=== PATIENT | female | born 1990 | race Caucasian/White ===

== ENCOUNTER 2017-08-28 07:11 | Inpatient (IN) | payer MEDICAID ==
[2017-08-28] MEDS ORDERED: Misoprostol 25 MCG (1/4 of 100 MCG) Tab VAG ONE (07:15)
[2017-08-28] MEDS ORDERED: Misoprostol 25 MCG (1/4 of 100 MCG) Tab ONE (07:29)
[2017-08-28] MEDS: Lactated Ringers 1,000 ML IV SCH ×4 (08:10→22:00)
[2017-08-28] MEDS: Penicillin G Potassium 2.5 MILLUNITS in Sodium Chloride 0.9% 100 ML IV SCH ×3 (08:40→16:05)
[2017-08-28] MEDS ORDERED: fentaNYL 100 MCG/2 ML SDV EPIDUR ONE (09:09)
[2017-08-28] MEDS ORDERED: Ropivacaine 200 ML EPIDUR ONE (09:09)
[2017-08-28] MEDS ORDERED: Ondansetron 4 MG/2 ML SDV IVPUSH PRN ×3 (11:49→20:36)
[2017-08-28] MEDS ORDERED: Magnesium Sulfate/Water 40 GM/1,000 ML BAG IV SCH (12:00)
[2017-08-28] MEDS ORDERED: Magnesium Sulfate/Water 4 GM in Premix Bag 1 BAG IV ONE (12:00)
[2017-08-28] MEDS ORDERED: ePHEDrine 50 MG/ML SDV ONE (13:00)
[2017-08-28] MEDS ORDERED: Naloxone 0.4 MG/ML SDV ONE (13:01)
[2017-08-28] MEDS ORDERED: Naloxone 0.4 MG/ML SDV IVPUSH PRN ×3 (13:20→20:36)
[2017-08-28] MEDS ORDERED: diphenhydrAMINE 50 MG/ML SDV IVPUSH PRN ×2 (13:20→20:12)
[2017-08-28] MEDS ORDERED: ePHEDrine 50 MG/ML SDV IVPUSH PRN ×2 (13:20→20:12)
[2017-08-28] MEDS ORDERED: Promethazine 25 MG/ML SDV IV PRN (13:20)
[2017-08-28] MEDS ORDERED: Naloxone 0.4 MG in Sodium Chloride 0.9% 100 ML IV PRN (13:20)
[2017-08-28] MEDS ORDERED: Oxytocin/Normal Saline 10 UNIT/1,000 ML BAG IV SCH (15:30)
--- NOTE | 2017-08-28 17:21 | PCM.LDHP ---
L&D History of Present Illness - General Date of Service: 08/28/17 Admit Problem/Dx: Patient Status Order with Admit Dx/Problem 08/28/17 07:24 Admission Status [Patient Status] [ADT] Routine 08/28/17 10:35 Admission Status [Patient Status] [ADT] Routine 08/28/17 12:00 Patient Status [ADT] Routine 08/30/17 07:00 Admission Status [Patient Status] [ADT] Routine Admission Diagnosis/Problem Admission Diagnosis/Problem Source of Information: Patient History Limitations: Reports: No Limitations - History of Present Illness Introduction:: 27-year-old female at 39 weeks plus admitted for induction of labor. EDC is 09/02/2017. She has a history of obesity,affecting , a two-vessel cord affecting the , polyhydramnios,which has been stable with an MOUNA of 6.1. She also has a history of tobacco abuse. She will start 2 previous pregnancies in early trimesters. This has otherwise been unremarkable with exception of what sort admission above. She is being admitted for elective induction because of the above reasons. - Related Data Allergies/Adverse Reactions: Allergies Allergy/AdvReac Type Severity Reaction Status Date / Time loratadine [From Claritin-D] Allergy Anaphylactic Verified 08/28/17 08:24 Shock Home Medications: Home Meds DEA108/Iron Fumarate/FA/DSS [ 19 Tablet] 1 each PO 08/28/17 [History] Past Medical History Gastrointestinal History: Reports: GERD PREFABRICATED HOUSES TRIMMER History: Reports: , Spontaneous Other OB/BYN History: Neurological History: Reports: Migraines Psychiatric History: Reports: Anxiety, Depression - Past Surgical History GI Surgical History: Reports: Cholecystectomy Social & Family History - Family History Family Medical History: Noncontributory - Tobacco Use Smoking Status *Q: Current Every Day Smoker Years of Tobacco use: 7 Packs/Tins Daily: 0.2 Used Tobacco, but Quit: No Second Hand Smoke Exposure: No - Caffeine Use Caffeine Use: Reports: Soda - Alcohol Use Days Per Week of Alcohol Use: 0 - Recreational Drug Use Recreational Drug Use: No Drug Use in Last 12 Months: Yes Recreational Drug Type: Reports: Marijuana/Hashish Recreational Drug Use Frequency: Daily Recreational Drug Last Use: 2 days ago H&P Review of Systems - Review of Systems: Review Of Systems: ROS reveals no pertinent complaints other than HPI. L&D Exam - Exam Exam: See Below - Vital Signs Vital Signs: Last Vital Signs Temp 97.5 F 08/28/17 12:00 Pulse 107 H 08/28/17 15:18 Resp 20 08/28/17 15:18 BP 115/51 L 08/28/17 15:18 Pulse Ox 98 08/28/17 15:18 Weight: 130.907 kg - OB Specific Contraction Duration (sec): 50-110 Contraction Frequency (min): 2-6 Contraction Intensity: Moderate to Strong - Stevens Score Stevens Score Cervix Position: Posterior Stevens Score Consistency: Medium Stevens Score Dilation: 1-2 cm Stevens Score 's Station: -2 - Exam General: Alert, Oriented HEENT: PERRLA, Conjunctiva Clear, EACs Clear, EOMI, Hearing Intact, Mucosa Moist & [place], Nares Patent, Normal Nasal Septum, Posterior Pharynx Clear, TMs Clear Neck: Supple, Trachea Midline Lungs: Clear to Auscultation, Normal Respiratory Effort Cardiovascular: Regular Rate, Regular Rhythm GI/Abdominal Exam: Normal Bowel Sounds, Soft, Non-Tender, No Organomegaly, No Distention, No Abnormal Bruit, No Mass, Pelvis Stable Rectal Exam: Normal Exam, Normal Rectal Tone Genitourinary: Normal external exam, Normal bimanual exam, Normal speculum exam Back Exam: Normal Inspection, Full Range of Motion Extremities: Normal Inspection, Normal Range of Motion, Non-Tender, No Pedal Edema, Normal Capillary Refill Skin: Warm, Dry, Intact Neurological: Cranial Nerves Intact, Reflexes Equal Bilateral Psychiatric: Alert, Normal Affect, Normal Mood - Patient Data Lab Results Last 24 hrs: Laboratory Results - last 24 hr 08/28/17 08/28/17 Range/Units 10:56 10:56 WBC 11.7 (4.5-12.0) X10-3/uL RBC 4.38 (3.23-5.20) x10(6)uL Hgb 11.9 (11.5-15.5) g/dL Hct 35.1 (30.0-51.3) % MCV 80.2 (80-96) fL MCH 27.1 L (27.7-33.6) pg MCHC 33.8 (32.2-35.4) g/dL RDW 16.0 H (11.5-15.5) % Plt Count 336 (125-369) X10(3)uL MPV 8.0 (7.4-10.4) fL Neut % (Auto) 76.8 (46-82) % Lymph % (Auto) 16.4 (13-37) % [place] % (Auto) 5.8 (4-12) % Eos % (Auto) 1 (1.0-5.0) % Baso % (Auto) 0 (0-2) % Neut # (Auto) 9.0 H (1.6-8.3) # Lymph # (Auto) 1.9 (0.6-5.0) # [place] # (Auto) 0.7 (0.0-1.3) # Eos # (Auto) 0.1 (0.0-0.8) # Baso # (Auto) 0.0 (0.0-0.2) # Sodium 137 (135-145) mmol/L Potassium 4.0 (3.5-5.3) mmol/L Chloride 104 (100-110) mmol/L Carbon Dioxide 20 L (21-32) mmol/L BUN 11 (7-18) mg/dL Creatinine 0.8 (0.55-1.02) mg/dL Est Cr Clr Drug Dosing 100.63 mL/min Estimated GFR (MDRD) > 60 (>60) BUN/Creatinine Ratio 13.8 (9-20) Glucose 81 (80-116) mg/dL Calcium 8.8 (8.6-10.2) mg/dL Total Bilirubin 0.4 (0.1-1.3) mg/dL AST 18 (5-25) IU/L ALT 18 (12-36) U/L Alkaline Phosphatase 104 (56-112) IU/L Total Protein 6.8 (6.0-8.0) g/dL Albumin 2.5 L (3.5-5.2) g/dL Globulin 4.3 g/dL Albumin/Globulin Ratio 0.6 Result Diagrams: 08/28/17 10:56 08/28/17 10:56 - Problem List (1) Term SNOMED Code(s): 42455271 ICD Code: Z34.80 - ENCOUNTER FOR SUPRVSN OF NORMAL , UNSP TRIMESTER Status: Acute Current Visit: Yes (2) Elective induction of labor planned SNOMED Code(s): 591748667 ICD Code: [id number] - Status: Acute Current Visit: Yes (3) Polyhydramnios SNOMED Code(s): 17255760 ICD Code: O40.9XX0 - POLYHYDRAMNIOS, UNSP TRIMESTER, NOT APPLICABLE OR UNSP Status: Acute Current Visit: Yes Qualifiers: Trimester: third trimester (4) Group B streptococcal carriage complicating SNOMED Code(s): 211942787800460 ICD Code: O99.820 - STREPTOCOCCUS B CARRIER STATE COMPLICATING Status: Acute Current Visit: Yes (5) Two vessel umbilical cord in mcintosh , antepartum SNOMED Code(s): 131492224 ICD Code: O09.899 - SUPERVISION OF OTHER HIGH RISK PREGNANCIES, UNSP TRIMESTER Status: Acute Current Visit: Yes (6) Severe pre-eclampsia SNOMED Code(s): 90323082 ICD Code: O14.10 - SEVERE PRE-ECLAMPSIA, UNSPECIFIED TRIMESTER Status: Acute Current Visit: Yes Qualifiers: Trimester: third trimester Qualified Code(s): O14.13 - Severe pre-eclampsia , third trimester (7) Obesity SNOMED Code(s): 879186493 ICD Code: E66.9 - OBESITY, UNSPECIFIED Status: Acute Current Visit: Yes Problem List Initiated/Reviewed/Updated: Yes Orders Last 24hrs: Active Orders 24 hr Category Date Time Status Admission Status [Patient Status] [ADT] Routine ADT 08/28/17 07:24 Active Admission Status [Patient Status] [ADT] Routine ADT 08/28/17 10:35 Active Admission Status [Patient Status] [ADT] Routine ADT 08/30/17 07:00 Active Patient Status [ADT] Routine ADT 08/28/17 12:00 Active Bedrest [RC] ASDIRECTED Care 08/28/17 10:55 Active Communication Order [RC] ASDIRECTED Care 08/28/17 12:00 Active Communication Order [RC] ASDIRECTED Care 08/28/17 15:18 Active Communication Order [RC] ASDIRECTED Care 08/28/17 15:18 Active Communication Order [RC] ASDIRECTED Care 08/28/17 15:18 Active Communication Order [RC] ASDIRECTED Care 08/28/17 15:18 Active Equipment to Bedside [RC] PRN Care 08/28/17 12:00 Active Insert Urinary Catheter [OM.PC] ONETIME Care 08/28/17 16:30 Ordered Notify Provider Vital Signs [RC] ASDIRECTED Care 08/28/17 12:03 Active Notify Provider [RC] PRN Care 08/28/17 15:18 Active Notify Provider [RC] STAT Care 08/28/17 15:18 Active Oxygen Therapy [RC] PRN Care 08/28/17 12:00 Active Urinary Catheter Assessment [RC] QSHIFT Care 08/28/17 16:31 Active Vital Signs [RC] ASDIRECTED Care 08/28/17 12:00 Active BASIC METABOLIC PANEL,BMP [CHEM] Routine Lab 08/28/17 17:11 Ordered MAGNESIUM [CHEM] Stat Lab 08/28/17 17:11 Ordered Lactated Ringers [Ringers, Lactated] 1,000 ml Med 08/28/17 07:45 Active IV ASDIRECTED Magnesium Sulfate/Water [Magnesium Sulfate 40 GM in Med 08/28/17 12:00 Active Water 1000 ML] 40 gm in 1,000 ml IV ASDIRECTED Naloxone [Narcan] Med 08/28/17 13:20 Active 0.1 mg IVPUSH ASDIRECTED PRN Naloxone [Narcan] 0.4 mg Med 08/28/17 13:20 Active Sodium Chloride 0.9% [Normal Saline] 100 ml IV ASDIRECTED Ondansetron [Zofran] Med 08/28/17 11:49 Active 4 mg IVPUSH Q6H PRN Ondansetron [Zofran] Med 08/28/17 13:23 Active 4 mg IVPUSH Q6H PRN Oxytocin/Normal Saline [Pitocin in NS 10 UNITS/1,000 ML Med 08/28/17 15:30 Active ] 10 unit in 1,000 ml IV TITRATE Penicillin G Potassium [Pfizerpen] 2.5 millunits Med 08/28/17 08:15 Active Sodium Chloride 0.9% [Normal Saline] 100 ml IV Q4H Promethazine [Phenergan] Med 08/28/17 13:20 Active 6.25 - 12.5 mg IV Q4H PRN diphenhydrAMINE [Benadryl] Med 08/28/17 13:20 Active 25 mg IVPUSH ASDIRECTED PRN ePHEDrine [ePHEDrine Sulfate] Med 08/28/17 13:20 Active 5 mg IVPUSH ASDIRECTED PRN Blood Pressure [OM.PC] Per Unit Routine Oth 08/28/17 12:00 Ordered Deep Tendon Reflexes [WOMSER] Per Unit Routine Oth 08/28/17 12:00 Ordered Resuscitation Status Routine Resus Stat 08/28/17 12:00 Ordered Medication Orders Diphenhydramine HCl (Benadryl) 25 mg IVPUSH ASDIRECTED PRN PRN Reason: PRURITUS Ephedrine Sulfate (Ephedrine Sulfate) 5 mg IVPUSH ASDIRECTED PRN PRN Reason: HYPOTENSION Lactated Ringer's (Ringers, Lactated) 1,000 mls @ 125 mls/hr IV ASDIRECTED STEPHANIE Last Admin: 08/28/17 15:20 Dose: 500 mls/hr Infusion: 08/28/17 12:39 Dose: 999 mls/hr Infusion: 08/28/17 11:39 Dose: 999 mls/hr Admin: 08/28/17 11:38 Dose: 125 mls/hr Infusion: 08/28/17 11:38 Dose: 125 mls/hr Admin: 08/28/17 08:10 Dose: 125 mls/hr Penicillin G Potassium 2.5 (millunits/ Sodium Chloride) 100 mls @ 100 mls/hr IV Q4H STEPHANIE Last Admin: 08/28/17 16:05 Dose: 100 mls/hr Admin: 08/28/17 12:21 Dose: 100 mls/hr Admin: 08/28/17 08:40 Dose: 100 mls/hr Magnesium Sulfate (Magnesium Sulfate 40 Gm In Water 1000 Ml) 40 gm in 1,000 mls @ 50 mls/hr IV ASDIRECTED STEPHANIE PRN Reason: 2 GM/HR Last Admin: 08/28/17 12:35 Dose: 2 gm/hr, 50 mls/hr Naloxone HCl 0.4 mg/ Sodium (Chloride) 101 mls @ 25 mls/hr IV ASDIRECTED PRN PRN Reason: PER ORDER OF ANESTHESIA Oxytocin/Sodium Chloride (Pitocin In Ns 10 Units/1,000 Ml) 10 unit in 1,000 mls @ 12 mls/hr IV TITRATE STEPHANIE; 2 MUNITS/MIN PRN Reason: Protocol Last Titration: 08/28/17 16:29 Dose: 6 munits/min, 36 mls/hr Titration: 08/28/17 16:04 Dose: 4 munits/min, 24 mls/hr Admin: 08/28/17 15:31 Dose: 2 munits/min, 12 mls/hr Naloxone HCl (Narcan) 0.1 mg IVPUSH ASDIRECTED PRN PRN Reason: RESPIRATORY STATUS Ondansetron HCl (Zofran) 4 mg IVPUSH Q6H PRN PRN Reason: Nausea/Vomiting Last Admin: 08/28/17 11:59 Dose: 4 mg Ondansetron HCl (Zofran) 4 mg IVPUSH Q6H PRN PRN Reason: NAUSEA/VOMITING Promethazine HCl (Phenergan) 6.25 - 12.5 mg IV Q4H PRN PRN Reason: NAUSEA AND VOMITING Assessment/Plan Comment:: Patient was induced by Cytotec orally this morning. Pitocin was initiated later today. She had spontaneous rupture of membranes. I started group B prophylaxis with penicillin-based protocol. In addition I placed an IUPC after it was difficult to monitor contractions. She asked and received an epidural analgesic. At this time she is resting about 8-9 cm. We started magnesium also because of very high blood pressures were discovered today CBC and CMP has been negative. We'll continue augmentation of labor group B chemoprophylaxis, hopeful vaginal imminently
[2017-08-28] MEDS ORDERED: Labetalol 20 MG/4 ML Syringe IVPUSH ONE (18:18)
[2017-08-28] MEDS ORDERED: Labetalol 20 MG/4 ML Syringe ONE (18:20)
[2017-08-28] MEDS ORDERED: Citric Acid/Sodium Citrate Solution 30 ML Cup PO STA (18:51)
[2017-08-28] MEDS ORDERED: Scopolamine 1.5 MG Transdermal Patch TRDERM STA (18:51)
[2017-08-28] MEDS ORDERED: Ondansetron 4 MG/2 ML SDV IVPUSH ONE (20:30)
[2017-08-28] MEDS ORDERED: Oxytocin 10 Units/1 ML SDV IV ONE (20:30)
[2017-08-28] MEDS ORDERED: ePHEDrine/Normal Saline 50 MG/5 ML Syringe IV ONE (20:30)
[2017-08-28] MEDS ORDERED: Propofol 200 MG/20 ML SDV IV ONE (20:30)
[2017-08-28] MEDS ORDERED: Phenylephrine 1% 10 MG/ML SDV IV ONE (20:30)
[2017-08-28] MEDS ORDERED: Lactated Ringers 1,000 ML IV ONE (20:30)
[2017-08-28] MEDS ORDERED: Dexamethasone 4 MG/ML SDV IVPUSH ONE (20:30)
[2017-08-28] MEDS ORDERED: Carboprost Tromethamine 250 MCG/1 ML Amp IM ONE (20:30)
[2017-08-28] MEDS ORDERED: Lidocaine 2% 5 ML SDV IV ONE (20:30)
[2017-08-28] MEDS ORDERED: Morphine PF 10 MG/10 ML SDV IV ONE (20:30)
[2017-08-28] MEDS ORDERED: Citric Acid/Sodium Citrate Solution 30 ML Cup PO ONE (20:30)
[2017-08-28] MEDS ORDERED: Promethazine 6.25 MG in Sodium Chloride 0.9% 50 ML IV PRN (20:36)
[2017-08-28] MEDS ORDERED: Nalbuphine 10 MG/1 ML Vial IVPUSH PRN (20:36)
[2017-08-28] MEDS ORDERED: Morphine 2 MG/ML Syringe IVPUSH PRN (20:36)
--- NOTE | 2017-08-28 21:14 | DEL ---
DATE OF DELIVERY: 08/28/2017 PROCEDURE: . PREOPERATIVE DIAGNOSES: 1. Nonreassuring heart tones. 2. Polyhydramnios. 3. Failure to descend. 4. Obesity. 5. Severe hypertension. 6. Meconium staining of the amniotic fluid. POSTOPERATIVE DIAGNOSES: 1. Nonreassuring heart tones. 2. Polyhydramnios. 3. Failure to descend. 4. Obesity. 5. Severe hypertension. 6. Meconium staining of the amniotic fluid. SENIOR EDITOR: Irwin Womack MD. ANESTHESIA: Regional. PERMIT: The patient accepted the risks, benefits, and reasonable alternatives. PROCEDURE DETAILS: The patient was taken to the OR. Draped, prepped in the usual sterile fashion. The anesthesia was found to be adequate. The patient had received preoperative antibiotics in the form of penicillin. A Pfannenstiel incision was made along the lower abdominal wall, carried to the underlying fascia. This was scored in the middle and carried laterally using Edouard scissors. Using Kelvin clamps, the fascia was dissected from the muscles sharply. The rectus muscles were in the middle and the uterus, so the peritoneum was entered sharply ascertaining the internal organs were safe. After stretching, a bladder blade was inserted and a bladder reflection on the bilateral peritoneum was placed. A small incision in the lower uterine segment was made horizontally and pulled in the [id number] manner by the surgeon's fingers. Copious amounts of light meconium stained fluid was expressed. There was a nuchal cord which was reduced and the baby delivered. There was no suction at the site, but the baby's cord was cut and clamped, and the baby was handed to the waiting nurses. This is a vigorous male infant. scores 8 and 9. The attention was turned to the mother where cord blood was obtained and the placenta, 2-vessel was expressed manually. The uterus was then exteriorized and cleaned of all debris. It was closed in 2 layers using 1- 0 Vicryl. There were no complications after irrigation, and ascertaining hemostasis, the uterus was returned to the abdomen and the gutters were irrigated. The rectus fascia was then closed with 0 Vicryl and the subcutaneous fascia and skin were closed with 3-0 running stitch. Estimated blood loss 3-400 mL. Both the mother and baby stable in the PAC unit. /[id number] DAIJA/EDIS
[2017-08-29] MEDS: Penicillin G Potassium 2.5 MILLUNITS in Sodium Chloride 0.9% 100 ML IV SCH ×5 (00:22→14:44)
[2017-08-29] MEDS: Lactated Ringers 1,000 ML IV SCH ×2 (04:01→08:15)
[2017-08-29] MEDS: Ibuprofen 600 MG Tab PO SCH ×2 (12:09→18:18)
--- NOTE | 2017-08-29 17:32 | PCM.PNPP ---
- General Info Date of Service: 08/29/17 Functional Status: Reports: Tolerating Diet - Review of Systems General: Reports: No Symptoms HEENT: Reports: No Symptoms Pulmonary: Reports: No Symptoms Cardiovascular: Reports: No Symptoms Gastrointestinal: Reports: No Symptoms Genitourinary: Reports: No Symptoms Musculoskeletal: Reports: No Symptoms Skin: Reports: No Symptoms Neurological: Reports: No Symptoms Psychiatric: Reports: No Symptoms - General Info Date of Service: 08/29/17 - Patient Data Vital Signs - Most Recent: Last Vital Signs Temp 97.9 F 08/29/17 15:45 Pulse 87 08/29/17 15:45 Resp 18 08/29/17 15:45 BP 132/65 08/29/17 15:45 Pulse Ox 98 08/29/17 15:45 Weight - Most Recent: 130.907 kg I&O - Last 24 Hours: Intake & Output 08/29/17 08/29/17 08/29/17 06:59 14:59 22:59 Intake Total 1565 300 Output Total 2800 1700 Balance -1235 -1400 Lab Results - Last 24 Hours: Laboratory Results - last 24 hr 08/28/17 08/28/17 08/28/17 Range/Units 17:20 18:50 20:10 WBC (4.5-12.0) X10-3/uL RBC (3.23-5.20) x10(6)uL Hgb (11.5-15.5) g/dL Hct (30.0-51.3) % MCV (80-96) fL MCH (27.7-33.6) pg MCHC (32.2-35.4) g/dL RDW (11.5-15.5) % Plt Count (125-369) X10(3)uL MPV (7.4-10.4) fL Neut % (Auto) (46-82) % Lymph % (Auto) (13-37) % [place] % (Auto) (4-12) % Eos % (Auto) (1.0-5.0) % Baso % (Auto) (0-2) % Neut # (Auto) (1.6-8.3) # Lymph # (Auto) (0.6-5.0) # [place]inger # (Auto) (0.0-1.3) # Eos # (Auto) (0.0-0.8) # Baso # (Auto) (0.0-0.2) # Sodium 136 (135-145) mmol/L Potassium 3.9 (3.5-5.3) mmol/L Chloride 104 (100-110) mmol/L Carbon Dioxide 22 (21-32) mmol/L BUN 11 (7-18) mg/dL Creatinine 0.8 (0.55-1.02) mg/dL Est Cr Clr Drug Dosing 100.63 mL/min Estimated GFR (MDRD) > 60 (>60) BUN/Creatinine Ratio 13.8 (9-20) Glucose 103 (80-116) mg/dL Calcium 8.6 (8.6-10.2) mg/dL Magnesium 3.9 H* (1.8-2.5) mg/dL Urine Color Yellow (YELLOW) Urine Appearance Clear (CLEAR) Urine pH 5.0 (5.0-6.5) Ur Specific [place] 1.010 (1.010-1.025) Urine Protein Negative (NEGATIVE) mg/dL Urine Glucose (UA) Normal (NEGATIVE) mg/dL Urine Ketones Negative (NEGATIVE) mg/dL Urine Occult Blood Moderate H (NEGATIVE) Urine Nitrite Negative (NEGATIVE) Urine Bilirubin Negative (NEGATIVE) Urine Urobilinogen Normal (NEGATIVE) mg/dL Ur Leukocyte Esterase Negative (NEGATIVE) Urine RBC 5-10 (0) Urine WBC 0-5 (0) Ur Squamous Epith Cells Few H (NS,R,O) Urine Bacteria Few H (NS) Ur Random Creatinine mg/dL U Random Total Protein (<11.9) mg/dL Protein/Creatinin Ratio mg/mg Blood Type A POSITIVE Gel Antibody Screen Negative 08/28/17 08/29/17 08/29/17 Range/Units 20:10 06:10 06:10 WBC 15.0 H (4.5-12.0) X10-3/uL RBC 3.28 (3.23-5.20) x10(6)uL Hgb 8.9 L D (11.5-15.5) g/dL Hct 26.3 L (30.0-51.3) % MCV 80.3 (80-96) fL MCH 27.0 L (27.7-33.6) pg MCHC 33.6 (32.2-35.4) g/dL RDW 16.2 H (11.5-15.5) % Plt Count 332 (125-369) X10(3)uL MPV 8.1 (7.4-10.4) fL Neut % (Auto) 83.3 H (46-82) % Lymph % (Auto) 10.3 L (13-37) % Grainger % (Auto) 6.0 (4-12) % Eos % (Auto) 0 L (1.0-5.0) % Baso % (Auto) 0 (0-2) % Neut # (Auto) 12.6 H (1.6-8.3) # Lymph # (Auto) 1.5 (0.6-5.0) # Grainger # (Auto) 0.9 (0.0-1.3) # Eos # (Auto) 0.0 (0.0-0.8) # Baso # (Auto) 0.0 (0.0-0.2) # Sodium 136 (135-145) mmol/L Potassium 4.1 (3.5-5.3) mmol/L Chloride 104 (100-110) mmol/L Carbon Dioxide 23 (21-32) mmol/L BUN 9 (7-18) mg/dL Creatinine 0.7 (0.55-1.02) mg/dL Est Cr Clr Drug Dosing 115.01 mL/min Estimated GFR (MDRD) > 60 (>60) BUN/Creatinine Ratio 12.9 (9-20) Glucose 110 (80-116) mg/dL Calcium 7.6 L (8.6-10.2) mg/dL Magnesium (1.8-2.5) mg/dL Urine Color (YELLOW) Urine Appearance (CLEAR) Urine pH (5.0-6.5) Ur Specific [place] (1.010-1.025) Urine Protein (NEGATIVE) mg/dL Urine Glucose (UA) (NEGATIVE) mg/dL Urine Ketones (NEGATIVE) mg/dL Urine Occult Blood (NEGATIVE) Urine Nitrite (NEGATIVE) Urine Bilirubin (NEGATIVE) Urine Urobilinogen (NEGATIVE) mg/dL Ur Leukocyte Esterase (NEGATIVE) Urine RBC (0) Urine WBC (0) Ur Squamous Epith Cells (NS,R,O) Urine Bacteria (NS) Ur Random Creatinine 8 mg/dL U Random Total Protein < 6.0 (<11.9) mg/dL Protein/Creatinin Ratio 0.75 mg/mg Blood Type Gel Antibody Screen Med Orders - Current: Current Medications Diphenhydramine HCl (Benadryl) 25 mg IVPUSH Q6H PRN PRN Reason: Itching or Nausea Ephedrine Sulfate (Ephedrine Sulfate) 5 mg IVPUSH ASDIRECTED PRN PRN Reason: Other Oxytocin/Sodium Chloride (Pitocin In Ns 10 Units/1,000 Ml) 10 unit in 1,000 mls @ 12 mls/hr IV TITRATE STEPHANIE; 2 MUNITS/MIN PRN Reason: Protocol Last Titration: 08/28/17 18:07 Dose: 10 munits/min, 60 mls/hr Promethazine HCl 6.25 mg/ (Sodium Chloride) 50.25 mls @ 200 mls/hr IV Q6H PRN PRN Reason: Nausea/Vomiting Ibuprofen (Motrin) 600 mg PO Q6H STEPHANIE Last Admin: 08/29/17 12:09 Dose: 600 mg Morphine Sulfate (Morphine) 2 mg IVPUSH Q1H PRN PRN Reason: Pain Nalbuphine HCl (Nubain) 10 mg IVPUSH Q1H PRN PRN Reason: Pruritus Naloxone HCl (Narcan) 0.1 mg IVPUSH ONETIME PRN PRN Reason: Respiratory Depression Naloxone HCl (Narcan) 0.1 mg IVPUSH ONETIME PRN PRN Reason: Oversedation Ondansetron HCl (Zofran) 4 mg IVPUSH Q6H PRN PRN Reason: Nausea/Vomiting Last Admin: 08/28/17 11:59 Dose: 4 mg Ondansetron HCl (Zofran) 4 mg IVPUSH Q6H PRN PRN Reason: Nausea/Vomiting Discontinued Medications Citric Acid/Sodium Citrate (Bicitra Solution) 30 ml PO ONETIME STA Stop: 08/28/17 18:52 Last Admin: 08/28/17 18:59 Dose: 30 ml Diphenhydramine HCl (Benadryl) 25 mg IVPUSH ASDIRECTED PRN PRN Reason: PRURITUS Ephedrine Sulfate (Ephedrine Sulfate) Confirm Administered Dose 50 mg .ROUTE .STK-MED ONE Stop: 08/28/17 13:01 Last Admin: 08/28/17 18:28 Dose: Not Given Ephedrine Sulfate (Ephedrine Sulfate) 5 mg IVPUSH ASDIRECTED PRN PRN Reason: HYPOTENSION Lactated Ringer's (Ringers, Lactated) 1,000 mls @ 125 mls/hr IV ASDIRECTED [facility] Last Admin: 08/29/17 08:15 Dose: 125 mls/hr Penicillin G Potassium 2.5 (millunits/ Sodium Chloride) 100 mls @ 100 mls/hr IV Q4H [facility] Last Admin: 08/29/17 14:44 Dose: Not Given Magnesium Sulfate 4 gm/ Premix 50 mls @ 150 mls/hr IV ONETIME ONE Stop: 08/28/17 12:19 Last Admin: 08/28/17 12:07 Dose: 150 mls/hr Magnesium Sulfate (Magnesium Sulfate 40 Gm In Water 1000 Ml) 40 gm in 1,000 mls @ 50 mls/hr IV ASDIRECTED [facility] PRN Reason: 2 GM/HR Last Admin: 08/28/17 12:35 Dose: 2 gm/hr, 50 mls/hr Naloxone HCl 0.4 mg/ Sodium (Chloride) 101 mls @ 25 mls/hr IV ASDIRECTED PRN PRN Reason: PER ORDER OF ANESTHESIA Lactated Ringer's (Ringers, Lactated) 1,000 mls @ 250 mls/hr IV ASDIRECTED [facility] Last Admin: 08/29/17 04:01 Dose: 250 mls/hr Labetalol HCl (Normodyne) 20 mg IVPUSH ONETIME ONE PRN Reason: Protocol Stop: 08/28/17 18:19 Last Admin: 08/28/17 18:24 Dose: 20 mg Labetalol HCl (Normodyne) Confirm Administered Dose 20 mg .ROUTE .STK-MED ONE Stop: 08/28/17 18:21 Misoprostol (Cytotec) 25 mcg VAG ONETIME ONE Stop: 08/28/17 07:16 Last Admin: 08/28/17 07:31 Dose: 25 mcg Misoprostol (Cytotec) Confirm Administered Dose 25 mcg .ROUTE .STK-MED ONE Stop: 08/28/17 07:30 Last Admin: 08/28/17 07:31 Dose: Not Given Naloxone HCl (Narcan) Confirm Administered Dose 0.4 mg .ROUTE .STK-MED ONE Stop: 08/28/17 13:02 Naloxone HCl (Narcan) 0.1 mg IVPUSH ASDIRECTED PRN PRN Reason: RESPIRATORY STATUS Ondansetron HCl (Zofran) 4 mg IVPUSH Q6H PRN PRN Reason: NAUSEA/VOMITING Promethazine HCl (Phenergan) 6.25 - 12.5 mg IV Q4H PRN PRN Reason: NAUSEA AND VOMITING Scopolamine (Transderm-Scop) 1.5 mg TRDERM Q72H STA Stop: 08/28/17 18:52 Last Admin: 08/28/17 18:59 Dose: 1.5 mg - Infant Interaction Disposition, : at Bedside Support Person: Sister - Recovery Exam Fundal Tone: Firm Fundal Level: At Umbilicus Fundal Placement: Midline Lochia Amount: Small, Moderate Lochia Color: Rubra/Red Perineum Description: Intact, Minimal Bruising/Swelling Episiotomy/Laceration: None Bladder Status: Nonpalpable Urinary Elimination: Indwelling Catheter - Problem List & Annotations (1) Term SNOMED Code(s): 80482133 Code(s): Z34.80 - ENCOUNTER FOR SUPRVSN OF NORMAL , UNSP TRIMESTER Status: Acute Current Visit: Yes (2) Elective induction of labor planned SNOMED Code(s): 710659219 Code(s): XHD2717 - Status: Acute Current Visit: Yes (3) Polyhydramnios SNOMED Code(s): 49410114 Code(s): O40.9XX0 - POLYHYDRAMNIOS, UNSP TRIMESTER, NOT APPLICABLE OR UNSP Status: Acute Current Visit: Yes Qualifiers: Trimester: third trimester (4) Group B streptococcal carriage complicating SNOMED Code(s): 638115480388111 Code(s): O99.820 - STREPTOCOCCUS B CARRIER STATE COMPLICATING Status: Acute Current Visit: Yes (5) Two vessel umbilical cord in mcintosh , antepartum SNOMED Code(s): 243219026 Code(s): O09.899 - SUPERVISION OF OTHER HIGH RISK PREGNANCIES, UNSP TRIMESTER Status: Acute Current Visit: Yes (6) Severe pre-eclampsia SNOMED Code(s): 05676656 Code(s): O14.10 - SEVERE PRE-ECLAMPSIA, UNSPECIFIED TRIMESTER Status: Acute Current Visit: Yes Qualifiers: Trimester: third trimester Qualified Code(s): O14.13 - Severe pre-eclampsia , third trimester (7) Obesity SNOMED Code(s): 587545719 Code(s): E66.9 - OBESITY, UNSPECIFIED Status: Acute Current Visit: Yes - Problem List Review Problem List Initiated/Reviewed/Updated: Yes - My Orders Last 24 Hours: My Active Orders 08/28/17 17:16 Intrauterine Pressure Catheter Insertion [WOMSER] Stat 08/28/17 17:18 Intrauterine Pressure Catheter Mgmt [WOMSER] Routine 08/28/17 20:12 Intake and Output [RC] 06,14,22 RT Incentive Spirometry [RC] Q4HWA Vital Signs [RC] 00,08,16 Naloxone [Narcan] 0.1 mg IVPUSH ONETIME PRN diphenhydrAMINE [Benadryl] 25 mg IVPUSH Q6H PRN ePHEDrine [ePHEDrine Sulfate] 5 mg IVPUSH ASDIRECTED PRN 08/29/17 08:15 Communication Order [RC] ASDIRECTED 08/29/17 12:00 Activity as Tolerated [RC] .Routine Ibuprofen [Motrin] 600 mg PO Q6H 08/29/17 Breakfast Regular Diet [DIET] 08/30/17 07:00 Admission Status [Patient Status] [ADT] Routine - Plan Plan:: DC IVF,Start Oral Motrin.
[2017-08-29] MEDS ORDERED: Acetaminophen/Codeine 300-30 MG Tab PO PRN (22:14)
[2017-08-30] MEDS: Ibuprofen 600 MG Tab PO SCH ×4 (00:09→17:29)
[2017-08-30] MEDS ORDERED: Polyethylene Glycol 3350 Powder 17 GM Packet PO ONE (08:03)
[2017-08-30] MEDS ORDERED: Bisacodyl 5 MG Tab PO PRN (19:32)
--- NOTE | 2017-08-30 19:34 | PCM.PNPP ---
- General Info Date of Service: 08/30/17 Admission Dx/Problem (Free Text): Patient Status Order with Admit Dx/Problem 08/28/17 07:24 Admission Status [Patient Status] [ADT] Routine 08/28/17 10:35 Admission Status [Patient Status] [ADT] Routine 08/28/17 12:00 Patient Status [ADT] Routine 08/30/17 07:00 Admission Status [Patient Status] [ADT] Routine Admission Diagnosis/Problem Admission Diagnosis/Problem Functional Status: Reports: Pain Controlled, Tolerating Diet - Review of Systems General: Reports: No Symptoms HEENT: Reports: No Symptoms Pulmonary: Reports: No Symptoms Cardiovascular: Reports: No Symptoms Gastrointestinal: Reports: Constipation Genitourinary: Reports: No Symptoms Musculoskeletal: Reports: No Symptoms Skin: Reports: No Symptoms Neurological: Reports: No Symptoms Psychiatric: Reports: No Symptoms - General Info Date of Service: 08/30/17 - Patient Data Vital Signs - Most Recent: Last Vital Signs Temp 98.2 F 08/30/17 16:00 Pulse 88 08/30/17 16:00 Resp 17 08/30/17 16:00 BP 144/74 H 08/30/17 16:00 Pulse Ox 99 08/30/17 16:00 Weight - Most Recent: 130.907 kg Med Orders - Current: Current Medications Acetaminophen/Codeine Phosphate (Tylenol With Codeine No.3 300mg/30mg) 1 tab PO Q4H PRN PRN Reason: Pain Last Admin: 08/29/17 22:29 Dose: 1 tab Bisacodyl (Dulcolax) 10 mg PO BID PRN PRN Reason: Constipation Diphenhydramine HCl (Benadryl) 25 mg IVPUSH Q6H PRN PRN Reason: Itching or Nausea Ephedrine Sulfate (Ephedrine Sulfate) 5 mg IVPUSH ASDIRECTED PRN PRN Reason: Other Oxytocin/Sodium Chloride (Pitocin In Ns 10 Units/1,000 Ml) 10 unit in 1,000 mls @ 12 mls/hr IV TITRATE STEPHANIE; 2 MUNITS/MIN PRN Reason: Protocol Last Titration: 08/28/17 18:07 Dose: 10 munits/min, 60 mls/hr Ibuprofen (Motrin) 600 mg PO Q6H STEPHANIE Last Admin: 08/30/17 17:29 Dose: 600 mg Naloxone HCl (Narcan) 0.1 mg IVPUSH ONETIME PRN PRN Reason: Respiratory Depression Ondansetron HCl (Zofran) 4 mg IVPUSH Q6H PRN PRN Reason: Nausea/Vomiting Last Admin: 08/28/17 11:59 Dose: 4 mg Discontinued Medications Citric Acid/Sodium Citrate (Bicitra Solution) 30 ml PO ONETIME STA Stop: 08/28/17 18:52 Last Admin: 08/28/17 18:59 Dose: 30 ml Diphenhydramine HCl (Benadryl) 25 mg IVPUSH ASDIRECTED PRN PRN Reason: PRURITUS Ephedrine Sulfate (Ephedrine Sulfate) Confirm Administered Dose 50 mg .ROUTE .[facility] ONE Stop: 08/28/17 13:01 Last Admin: 08/28/17 18:28 Dose: Not Given Ephedrine Sulfate (Ephedrine Sulfate) 5 mg IVPUSH ASDIRECTED PRN PRN Reason: HYPOTENSION Lactated Ringer's (Ringers, Lactated) 1,000 mls @ 125 mls/hr IV ASDIRECTED [facility] Last Admin: 08/29/17 08:15 Dose: 125 mls/hr Penicillin G Potassium 2.5 (millunits/ Sodium Chloride) 100 mls @ 100 mls/hr IV Q4H [facility] Last Admin: 08/29/17 14:44 Dose: Not Given Magnesium Sulfate 4 gm/ Premix 50 mls @ 150 mls/hr IV ONETIME ONE Stop: 08/28/17 12:19 Last Admin: 08/28/17 12:07 Dose: 150 mls/hr Magnesium Sulfate (Magnesium Sulfate 40 Gm In Water 1000 Ml) 40 gm in 1,000 mls @ 50 mls/hr IV ASDIRECTED [facility] PRN Reason: 2 GM/HR Last Admin: 08/28/17 12:35 Dose: 2 gm/hr, 50 mls/hr Naloxone HCl 0.4 mg/ Sodium (Chloride) 101 mls @ 25 mls/hr IV ASDIRECTED PRN PRN Reason: PER ORDER OF ANESTHESIA Lactated Ringer's (Ringers, Lactated) 1,000 mls @ 250 mls/hr IV ASDIRECTED [facility] Last Admin: 08/29/17 04:01 Dose: 250 mls/hr Promethazine HCl 6.25 mg/ (Sodium Chloride) 50.25 mls @ 200 mls/hr IV Q6H PRN PRN Reason: Nausea/Vomiting Labetalol HCl (Normodyne) 20 mg IVPUSH ONETIME ONE PRN Reason: Protocol Stop: 08/28/17 18:19 Last Admin: 08/28/17 18:24 Dose: 20 mg Labetalol HCl (Normodyne) Confirm Administered Dose 20 mg .ROUTE .STK-MED ONE Stop: 08/28/17 18:21 Misoprostol (Cytotec) 25 mcg VAG ONETIME ONE Stop: 08/28/17 07:16 Last Admin: 08/28/17 07:31 Dose: 25 mcg Misoprostol (Cytotec) Confirm Administered Dose 25 mcg .ROUTE .[facility] ONE Stop: 08/28/17 07:30 Last Admin: 08/28/17 07:31 Dose: Not Given Morphine Sulfate (Morphine) 2 mg IVPUSH Q1H PRN PRN Reason: Pain Nalbuphine HCl (Nubain) 10 mg IVPUSH Q1H PRN PRN Reason: Pruritus Naloxone HCl (Narcan) Confirm Administered Dose 0.4 mg .ROUTE .STK-MED ONE Stop: 08/28/17 13:02 Naloxone HCl (Narcan) 0.1 mg IVPUSH ASDIRECTED PRN PRN Reason: RESPIRATORY STATUS Naloxone HCl (Narcan) 0.1 mg IVPUSH ONETIME PRN PRN Reason: Oversedation Ondansetron HCl (Zofran) 4 mg IVPUSH Q6H PRN PRN Reason: NAUSEA/VOMITING Ondansetron HCl (Zofran) 4 mg IVPUSH Q6H PRN PRN Reason: Nausea/Vomiting Polyethylene Glycol (Miralax) 17 gm PO ONETIME ONE Stop: 08/30/17 08:04 Last Admin: 08/30/17 08:53 Dose: 17 gm Promethazine HCl (Phenergan) 6.25 - 12.5 mg IV Q4H PRN PRN Reason: NAUSEA AND VOMITING Scopolamine (Transderm-Scop) 1.5 mg TRDERM Q72H STA Stop: 08/28/17 18:52 Last Admin: 08/28/17 18:59 Dose: 1.5 mg - Interaction Disposition, : at Bedside Support Person: Sister - Recovery Exam Fundal Tone: Firm Fundal Level: At Umbilicus Fundal Placement: Midline Lochia Amount: Small Lochia Color: Rubra/Red Perineum Description: Intact, Minimal Bruising/Swelling Episiotomy/Laceration: None Bladder Status: Nonpalpable Urinary Elimination: Indwelling Catheter - Exam General: Alert, Oriented HEENT: Pupils Equal Neck: Supple Lungs: Clear to Auscultation, Normal Respiratory Effort Cardiovascular: Regular Rate, Regular Rhythm GI/Abdominal Exam: Normal Bowel Sounds, Soft, Non-Tender, No Organomegaly, No Distention, No Abnormal Bruit, No Mass, Pelvis Stable Extremities: Normal Inspection, Normal Range of Motion, Non-Tender, No Pedal Edema, Normal Capillary Refill Skin: Warm, Dry, Intact Wound/Incisions: Healing Well Neurological: No New Focal Deficit Psy/Mental Status: Alert, Normal Affect, Normal Mood - Problem List & Annotations (1) Term SNOMED Code(s): 92206769 Code(s): Z34.80 - ENCOUNTER FOR SUPRVSN OF NORMAL , UNSP TRIMESTER Status: Acute Current Visit: Yes (2) Elective induction of labor planned SNOMED Code(s): 712506683 Code(s): TZA9313 - Status: Acute Current Visit: Yes (3) Polyhydramnios SNOMED Code(s): 98261473 Code(s): O40.9XX0 - POLYHYDRAMNIOS, UNSP TRIMESTER, NOT APPLICABLE OR UNSP Status: Acute Current Visit: Yes Qualifiers: Trimester: third trimester (4) Group B streptococcal carriage complicating SNOMED Code(s): 243967154954543 Code(s): O99.820 - STREPTOCOCCUS B CARRIER STATE COMPLICATING Status: Acute Current Visit: Yes (5) Two vessel umbilical cord in mcintosh , antepartum SNOMED Code(s): 444020018 Code(s): O09.899 - SUPERVISION OF OTHER HIGH RISK PREGNANCIES, UNSP TRIMESTER Status: Acute Current Visit: Yes (6) Severe pre-eclampsia SNOMED Code(s): 92986510 Code(s): O14.10 - SEVERE PRE-ECLAMPSIA, UNSPECIFIED TRIMESTER Status: Acute Current Visit: Yes Qualifiers: Trimester: third trimester Qualified Code(s): O14.13 - Severe pre-eclampsia , third trimester (7) Obesity SNOMED Code(s): 033372408 Code(s): E66.9 - OBESITY, UNSPECIFIED Status: Acute Current Visit: Yes (8) Constipation SNOMED Code(s): 97103471 Code(s): K59.00 - CONSTIPATION, UNSPECIFIED Status: Acute Current Visit: Yes - Problem List Review Problem List Initiated/Reviewed/Updated: Yes - My Orders Last 24 Hours: My Active Orders 08/29/17 22:14 Acetaminophen/Codeine [Tylenol with Codeine No.3 300MG/30MG] 1 tab PO Q4H PRN 08/30/17 07:00 Admission Status [Patient Status] [ADT] Routine 08/30/17 08:04 Discontinue Saline Lock [Peripheral IV Discontinue] [OM.PC] Routine 08/30/17 19:32 Bisacodyl [Dulcolax] 10 mg PO BID PRN - Assessment Assessment:: PRN Miralax or Dulcolax. DC in AM - Plan Plan:: DC IVF,Start Oral Motrin.
[2017-08-31] MEDS: Ibuprofen 600 MG Tab PO SCH ×3 (00:15→11:29)
--- NOTE | 2017-08-31 06:40 | PCM.PNPP ---
- General Info Date of Service: 08/31/17 Admission Dx/Problem (Free Text): Patient Status Order with Admit Dx/Problem 08/28/17 07:24 Admission Status [Patient Status] [ADT] Routine 08/28/17 10:35 Admission Status [Patient Status] [ADT] Routine 08/28/17 12:00 Patient Status [ADT] Routine 08/30/17 07:00 Admission Status [Patient Status] [ADT] Routine Admission Diagnosis/Problem Admission Diagnosis/Problem Functional Status: Reports: Pain Controlled - Review of Systems General: Reports: No Symptoms HEENT: Reports: No Symptoms Pulmonary: Reports: No Symptoms Cardiovascular: Reports: No Symptoms Gastrointestinal: Reports: No Symptoms Genitourinary: Reports: No Symptoms Musculoskeletal: Reports: No Symptoms - General Info Date of Service: 08/31/17 - Patient Data Vital Signs - Most Recent: Last Vital Signs Temp 98.2 F 08/30/17 23:54 Pulse 96 08/30/17 23:54 Resp 20 08/30/17 23:54 BP 157/95 H 08/30/17 23:54 Pulse Ox 98 08/30/17 23:54 Weight - Most Recent: 130.907 kg Med Orders - Current: Current Medications Acetaminophen/Codeine Phosphate (Tylenol With Codeine No.3 300mg/30mg) 1 tab PO Q4H PRN PRN Reason: Pain Last Admin: 08/29/17 22:29 Dose: 1 tab Bisacodyl (Dulcolax) 10 mg PO BID PRN PRN Reason: Constipation Diphenhydramine HCl (Benadryl) 25 mg IVPUSH Q6H PRN PRN Reason: Itching or Nausea Ephedrine Sulfate (Ephedrine Sulfate) 5 mg IVPUSH ASDIRECTED PRN PRN Reason: Other Oxytocin/Sodium Chloride (Pitocin In Ns 10 Units/1,000 Ml) 10 unit in 1,000 mls @ 12 mls/hr IV TITRATE STEPHANIE; 2 MUNITS/MIN PRN Reason: Protocol Last Titration: 08/28/17 18:07 Dose: 10 munits/min, 60 mls/hr Ibuprofen (Motrin) 600 mg PO Q6H STEPHANIE Last Admin: 08/31/17 05:45 Dose: 600 mg Naloxone HCl (Narcan) 0.1 mg IVPUSH ONETIME PRN PRN Reason: Respiratory Depression Ondansetron HCl (Zofran) 4 mg IVPUSH Q6H PRN PRN Reason: Nausea/Vomiting Last Admin: 08/28/17 11:59 Dose: 4 mg Discontinued Medications Citric Acid/Sodium Citrate (Bicitra Solution) 30 ml PO ONETIME STA Stop: 08/28/17 18:52 Last Admin: 08/28/17 18:59 Dose: 30 ml Diphenhydramine HCl (Benadryl) 25 mg IVPUSH ASDIRECTED PRN PRN Reason: PRURITUS Ephedrine Sulfate (Ephedrine Sulfate) Confirm Administered Dose 50 mg .ROUTE .STK-MED ONE Stop: 08/28/17 13:01 Last Admin: 08/28/17 18:28 Dose: Not Given Ephedrine Sulfate (Ephedrine Sulfate) 5 mg IVPUSH ASDIRECTED PRN PRN Reason: HYPOTENSION Lactated Ringer's (Ringers, Lactated) 1,000 mls @ 125 mls/hr IV ASDIRECTED [facility] Last Admin: 08/29/17 08:15 Dose: 125 mls/hr Penicillin G Potassium 2.5 (millunits/ Sodium Chloride) 100 mls @ 100 mls/hr IV Q4H [facility] Last Admin: 08/29/17 14:44 Dose: Not Given Magnesium Sulfate 4 gm/ Premix 50 mls @ 150 mls/hr IV ONETIME ONE Stop: 08/28/17 12:19 Last Admin: 08/28/17 12:07 Dose: 150 mls/hr Magnesium Sulfate (Magnesium Sulfate 40 Gm In Water 1000 Ml) 40 gm in 1,000 mls @ 50 mls/hr IV ASDIRECTED [facility] PRN Reason: 2 GM/HR Last Admin: 08/28/17 12:35 Dose: 2 gm/hr, 50 mls/hr Naloxone HCl 0.4 mg/ Sodium (Chloride) 101 mls @ 25 mls/hr IV ASDIRECTED PRN PRN Reason: PER ORDER OF ANESTHESIA Lactated Ringer's (Ringers, Lactated) 1,000 mls @ 250 mls/hr IV ASDIRECTED [facility] Last Admin: 08/29/17 04:01 Dose: 250 mls/hr Promethazine HCl 6.25 mg/ (Sodium Chloride) 50.25 mls @ 200 mls/hr IV Q6H PRN PRN Reason: Nausea/Vomiting Labetalol HCl (Normodyne) 20 mg IVPUSH ONETIME ONE PRN Reason: Protocol Stop: 08/28/17 18:19 Last Admin: 08/28/17 18:24 Dose: 20 mg Labetalol HCl (Normodyne) Confirm Administered Dose 20 mg .ROUTE .STK-MED ONE Stop: 08/28/17 18:21 Misoprostol (Cytotec) 25 mcg VAG ONETIME ONE Stop: 08/28/17 07:16 Last Admin: 08/28/17 07:31 Dose: 25 mcg Misoprostol (Cytotec) Confirm Administered Dose 25 mcg .ROUTE .STK-MED ONE Stop: 08/28/17 07:30 Last Admin: 08/28/17 07:31 Dose: Not Given Morphine Sulfate (Morphine) 2 mg IVPUSH Q1H PRN PRN Reason: Pain Nalbuphine HCl (Nubain) 10 mg IVPUSH Q1H PRN PRN Reason: Pruritus Naloxone HCl (Narcan) Confirm Administered Dose 0.4 mg .ROUTE .STK-MED ONE Stop: 08/28/17 13:02 Naloxone HCl (Narcan) 0.1 mg IVPUSH ASDIRECTED PRN PRN Reason: RESPIRATORY STATUS Naloxone HCl (Narcan) 0.1 mg IVPUSH ONETIME PRN PRN Reason: Oversedation Ondansetron HCl (Zofran) 4 mg IVPUSH Q6H PRN PRN Reason: NAUSEA/VOMITING Ondansetron HCl (Zofran) 4 mg IVPUSH Q6H PRN PRN Reason: Nausea/Vomiting Polyethylene Glycol (Miralax) 17 gm PO ONETIME ONE Stop: 08/30/17 08:04 Last Admin: 08/30/17 08:53 Dose: 17 gm Promethazine HCl (Phenergan) 6.25 - 12.5 mg IV Q4H PRN PRN Reason: NAUSEA AND VOMITING Scopolamine (Transderm-Scop) 1.5 mg TRDERM Q72H STA Stop: 08/28/17 18:52 Last Admin: 08/28/17 18:59 Dose: 1.5 mg - Infant Interaction Disposition, : [place] at Bedside Support Person: Sister - Recovery Exam Fundal Tone: Firm Fundal Level: 2 Fingerbreadths Below Umbilicus Fundal Placement: Midline Lochia Amount: Small Lochia Color: Rubra/Red Perineum Description: Intact, Minimal Bruising/Swelling Episiotomy/Laceration: None Bladder Status: Voiding Urinary Elimination: Indwelling Catheter - Problem List & Annotations (1) Term SNOMED Code(s): 94348012 Code(s): Z34.80 - ENCOUNTER FOR SUPRVSN OF NORMAL , UNSP TRIMESTER Status: Acute Current Visit: Yes (2) Elective induction of labor planned SNOMED Code(s): 575094300 Code(s): HLS0586 - Status: Acute Current Visit: Yes (3) Polyhydramnios SNOMED Code(s): 91484562 Code(s): O40.9XX0 - POLYHYDRAMNIOS, UNSP TRIMESTER, NOT APPLICABLE OR UNSP Status: Acute Current Visit: Yes Qualifiers: Trimester: third trimester (4) Group B streptococcal carriage complicating SNOMED Code(s): 657780892829962 Code(s): O99.820 - STREPTOCOCCUS B CARRIER STATE COMPLICATING Status: Acute Current Visit: Yes (5) Two vessel umbilical cord in mcintosh , antepartum SNOMED Code(s): 545604181 Code(s): O09.899 - SUPERVISION OF OTHER HIGH RISK PREGNANCIES, UNSP TRIMESTER Status: Acute Current Visit: Yes (6) Severe pre-eclampsia SNOMED Code(s): 27936365 Code(s): O14.10 - SEVERE PRE-ECLAMPSIA, UNSPECIFIED TRIMESTER Status: Acute Current Visit: Yes Qualifiers: Trimester: third trimester Qualified Code(s): O14.13 - Severe pre-eclampsia , third trimester (7) Obesity SNOMED Code(s): 571480126 Code(s): E66.9 - OBESITY, UNSPECIFIED Status: Acute Current Visit: Yes (8) Constipation SNOMED Code(s): 51419014 Code(s): K59.00 - CONSTIPATION, UNSPECIFIED Status: Acute Current Visit: Yes - Problem List Review Problem List Initiated/Reviewed/Updated: Yes - My Orders Last 24 Hours: My Active Orders 08/30/17 07:00 Admission Status [Patient Status] [ADT] Routine 08/30/17 08:04 Discontinue Saline Lock [Peripheral IV Discontinue] [OM.PC] Routine 08/30/17 19:32 Bisacodyl [Dulcolax] 10 mg PO BID PRN - Assessment Assessment:: Has passed stool.Doing well. Discharge -Recheck in 2 weeks - Plan Plan:: DC IVF,Start Oral Motrin.
[2017-08-31 08:05] VITALS: BP 150/89
--- NOTE | 2017-09-01 00:56 | DISCH ---
DISCHARGE DATE: 08/31/2017 REASON FOR ADMISSION: 1. Induction of labor. 2. Polyhydramnios. 3. Two-vessel cord, placenta. 4. Obesity. 5. Tobacco abuse. DISCHARGE DIAGNOSES: 1. Induction of labor. 2. Polyhydramnios. 3. Two-vessel cord, placenta. 4. Obesity. 5. Tobacco abuse. 6. Gestational hypertension. PROCEDURE: . BRIEF HISTORY AND HOSPITAL COURSE: This is a 27-year-old female who was admitted at 39+ weeks for induction of labor. This was achieved by Cytotec and Pitocin, and she had spontaneous rupture of membranes. However, she was noted to have severe blood pressure measurements, necessitating magnesium sulfate to prevent seizures. A was performed because of a nonreassuring heart rate and failure to descend. Dr. Womack and I did it. Please see the operative note for details. Postoperatively, she did very well. Blood pressure improved significantly. Hemoglobin dropped down to 8.9. The rest of the vital signs were normal. Urine was negative for proteinuria. The wound was intact, and constipation was treated with MiraLax. She was discharged today, the , with no complications, with followup in the office in 2 weeks. I spent more than 35 minutes in the discharge. /[id number] DAIJA/EDIS
== END 2017-08-31 11:41 | disposition home or self-care (01) | DRG 765 ==
LOC: FB.OB 07:11 → OBSVTOIN 10:35
PROVIDERS: ADMIT Family Medicine; ATTEND Family Medicine
PROC: 10D00Z1 Extraction of Products of Conception, Low, Open Approach (ICD-10-PCS; principal; 2017-08-28)
PROC: 3E0P7VZ Introduction of Hormone into Female Reproductive, Via Natural or Artificial Opening (ICD-10-PCS; 2017-08-28)
PROC: 3E033VJ Introduction of Other Hormone into Peripheral Vein, Percutaneous Approach (ICD-10-PCS; 2017-08-28)
PROC: 00HU33Z Insertion of Infusion Device into Spinal Canal, Percutaneous Approach (ICD-10-PCS; 2017-08-28)
DX: O76 Abnormality in fetal heart rate and rhythm complicating labor and delivery (principal); O40.3XX0 Polyhydramnios, third trimester, not applicable or unspecified; O77.0 Labor and delivery complicated by meconium in amniotic fluid; O14.14 Severe pre-eclampsia complicating childbirth; O99.214 Obesity complicating childbirth; O69.81X0 Labor and delivery complicated by cord around neck, without compression, not applicable or unspecified; O99.334 Smoking (tobacco) complicating childbirth; O32.4XX0 Maternal care for high head at term, not applicable or unspecified; O99.824 Streptococcus B carrier state complicating childbirth; O43.899 Other placental disorders, unspecified trimester; Z3A.39 39 weeks gestation of pregnancy; Z37.0 Single live birth; Z88.8 Allergy status to other drugs, medicaments and biological substances
CPT/HCPCS: 36415; 51701; 59409; 80048; 80053; 81001; 82570; 83735; 84156; 85025; 86850; 86900; 86901; 88307; A9270-GY; J1100; J2270; J2370; J2405; J2540; J2590; J2704; J2795; J3010; J3475; J7030; J7120

== ENCOUNTER 2017-09-19 19:00 | Emergency (ER) | payer MEDICAID ==
[2017-09-19 19:40] VITALS: BP 131/86
--- NOTE | 2017-09-20 05:31 | ER ---
DATE SEEN: 09/19/2017 REASON FOR VISIT: Check incision. HISTORY OF PRESENT ILLNESS: This is a 27-year-old female who had a on the 6th. In the last 2 days, the incision has opened up and bleeding. There has been no pain, pus, redness, or fever. PAST MEDICAL HISTORY: No active medical problems. ALLERGIES: None except Claritin. PHYSICAL EXAMINATION: VITAL SIGNS: Afebrile, blood pressure 131/86. ABDOMEN: Soft. Incision appeared clean. There is an area in the middle of the small seroma with dried old blood. IMPRESSION: Seroma. PLAN: Dressing. Reassurance. Follow up p.r.n. TIME SEEN: 1900 hours. /[id number] DAIJA/EDIS
== END 2017-09-19 19:35 | disposition home or self-care (01) ==
LOC: FB.ED 19:00
DX: O90.2 Hematoma of obstetric wound (principal)
CPT/HCPCS: 99282

== ENCOUNTER 2020-02-06 19:47 | Emergency (ER) | payer MEDICAID ==
[2020-02-06 20:18] VITALS: BP 133/87; PULSE 81
[2020-02-06] MEDS ORDERED: traMADol 50 MG Tab PO ONE (20:27)
[2020-02-06] MEDS ORDERED: Acetaminophen 500 MG Tab PO ONE (20:27)
[2020-02-06] MEDS ORDERED: Ibuprofen 800 MG Tab PO ONE (20:27)
[2020-02-06] MEDS ORDERED: Cyclobenzaprine 10 MG Tab PO ONE (20:27)
--- NOTE | 2020-02-06 21:00 | EDM.PDOC ---
ED HPI GENERAL MEDICAL PROBLEM - General Chief Complaint: Upper Extremity Injury/Pain Stated Complaint: SHOULDER PAIN Time Seen by Provider: 02/06/20 19:50 Source of Information: Reports: Patient History Limitations: Reports: No Limitations - History of Present Illness INITIAL COMMENTS - FREE TEXT/NARRATIVE: Patient presented to the ED because of right shoulder pain. She denies any recent trauma or injury. She left's heavy boxes at work. The pain is sharp7/10 at worse. 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: Neurological History: Reports: Migraines Psychiatric History: Reports: Anxiety, Depression - Past Surgical History GI Surgical History: Reports: Cholecystectomy Social & Family History - Family History Family Medical History: Noncontributory - Tobacco Use Smoking Status *Q: Current Every Day Smoker Years of Tobacco use: 15 Packs/Tins Daily: 0 - Caffeine Use Caffeine Use: Reports: Soda - Recreational Drug Use Recreational Drug Use: No Review of Systems - Review of Systems Review Of Systems: See Below Constitutional: Reports: No Symptoms Ears: Reports: No Symptoms Nose: Reports: No Symptoms Mouth/Throat: Reports: No Symptoms Respiratory: Reports: No Symptoms Cardiovascular: Reports: No Symptoms GI/Abdominal: Reports: No Symptoms Genitourinary: Reports: No Symptoms Musculoskeletal: Reports: Shoulder Pain Skin: Reports: No Symptoms ED EXAM, GENERAL - Physical Exam Exam: See Below Exam Limited By: No Limitations General Appearance: Alert, No Apparent Distress Eye Exam: Bilateral Eye: PERRL Ears: Normal External Exam, Normal Canal Nose: Normal Inspection, Normal Mucosa, No Blood Throat/Mouth: Normal Inspection, Normal Lips Head: Atraumatic, Normocephalic Neck: Normal Inspection, Supple, Non-Tender Respiratory/Chest: No Respiratory Distress, Lungs Clear, Normal Breath Sounds Cardiovascular: Normal Peripheral Pulses, Regular Rate, Rhythm, No Edema GI/Abdominal: Normal Bowel Sounds, Soft, Non-Tender Back Exam: Normal Inspection, Full Range of Motion Extremities: Normal Inspection, Other (tenderness rt ACJ area) Neurological: Alert, Oriented, CN II-XII Intact, Normal Cognition, No Motor/Sensory Deficits Psychiatric: Normal Affect, Normal Mood Course - Vital Signs Text/Narrative:: xray Rt shoulder-neg Ibuprofen 800 mg with tylenol 1000 mg po x1 flexeril 10 mg po x1 Last Recorded V/S: Last Vital Signs Temp 36.2 C 02/06/20 19:47 Pulse 81 02/06/20 19:47 Resp 16 02/06/20 19:47 BP 133/87 02/06/20 19:47 Pulse Ox 95 02/06/20 19:47 - Orders/Labs/Meds Meds: Medications Discontinued Medications Generic Name Dose Route Start Last Admin Trade Name Freq PRN Reason Stop Dose Admin Acetaminophen 1,000 mg 02/06/20 20:27 02/06/20 20:51 Tylenol Extra Strength PO 02/06/20 20:28 1,000 mg ONETIME ONE Administration Cyclobenzaprine HCl 10 mg 02/06/20 20:27 02/06/20 20:50 Flexeril PO 02/06/20 20:28 10 mg ONETIME ONE Administration Ibuprofen 800 mg 02/06/20 20:27 02/06/20 20:50 Motrin PO 02/06/20 20:28 800 mg ONETIME ONE Administration Tramadol HCl 100 mg 02/06/20 20:27 02/06/20 20:51 Ultram PO 02/06/20 20:28 100 mg ONETIME ONE Administration Departure - Departure Time of Disposition: 21:00 Disposition: Home, Self-Care 01 Condition: Good Clinical Impression: Tendonitis - Discharge Information Prescriptions: Cyclobenzaprine [Flexeril] 10 mg PO TID PRN #15 tab PRN Reason: Spasms Ibuprofen 800 mg PO TID PRN #30 tablet PRN Reason: Pain Instructions: Shoulder Pain Referrals: Sandip Silva MD [Primary Care Provider] - Forms: ED Department Discharge Additional Instructions: please read discharge instructions on tendonitis apply ice or heat whichever makes the pain go away take ibuprofen 800 mg with tylenol 1000 mg 3 times daily as needed for pain flexeril 10 mg 3 times daily as needed for muscle spasm Do the shoulder range of motion exercise Sepsis Event Note (ED) - Evaluation Sepsis Screening Result: No Definite Risk
--- NOTE | 2020-02-07 10:40 | CR ---
INDICATION: Right shoulder pain-previous dislocation. RIGHT SHOULDER: Three views of the right shoulder were obtained 02/06/2020-no comparison. A fracture dislocation or other significant bone or joint abnormality was not identified. Adjacent ribs and lung were unremarkable. IMPRESSION: Normal appearing right shoulder. MTDD
== END 2020-02-06 21:25 | disposition home or self-care (01) ==
LOC: FB.ED 19:47
DX: F17.210 Nicotine dependence, cigarettes, uncomplicated (principal); Z88.8 Allergy status to other drugs, medicaments and biological substances; M77.9 Enthesopathy, unspecified
CPT/HCPCS: 73030; 99283; A9270

== ENCOUNTER 2021-06-02 18:06 | Emergency (ER) | payer MEDICAID ==
[2021-06-02] MEDS ORDERED: Ondansetron 4 MG Tab.DIS PO ONE (18:07)
--- NOTE | 2021-06-02 18:16 | EDM.PDOC ---
ED HPI GENERAL MEDICAL PROBLEM - General Stated Complaint: BACK PAIN Time Seen by Provider: 06/02/21 18:15 Source of Information: Reports: Patient History Limitations: Reports: No Limitations - History of Present Illness INITIAL COMMENTS - FREE TEXT/NARRATIVE: 31-year-old female who reports onset of upper abdominal pain and mid to lower back pain beginning at about 4 to 6 AM today. She reports this pain awoke her from sleep. She reports that when she went to bed and during the day yesterday she felt completely well and had no symptoms. She reports that the pain is a sharp and cramping type pain and it was mild initially but has progressively worsened with time. She developed nausea with vomiting this morning but still went to work and episode of vomiting and then while at work she had 3 more ep isodes of vomiting and came home at 11 AM and has persisted with vomiting 6 since then and the pain has increased to a 10/10 level. She also has reported fever up to 101F and she has had chills. She has had no dysuria or hematuria. There is been no diarrhea. She has not been able to eat or drink anything today. Nothing really seems to make the pain better. Her pain is worse with palpation. She states she has had pain similar to this in the past but it was prior to her gallbladder surgery. She has had a cholecystectomy. There are no other associated signs or symptoms. There are no other modifying factors. 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) (Nothing) Bilateral Upper Abdomen Pain Score (Numeric/FACES): 10 - Related Data Allergies Allergy/AdvReac Type Severity Reaction Status Date / Time loratadine [From Claritin-D] Allergy Anaphylactic Verified 02/06/20 22:15 Shock Home Meds: Home Meds Ondansetron [Zofran ODT] 4 mg PO Q6H PRN #8 tab.dis 06/02/21 [Rx] cephALEXin [Keflex] 1,000 mg PO TID #60 cap 06/02/21 [Rx] traMADol [Ultram] 50 mg PO Q6H PRN #10 tab 06/02/21 [Rx] Past Medical History Gastrointestinal History: Reports: GERD 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 History: Musculoskeletal History: Reports: Fibromyalgia Neurological History: Reports: Migraines Psychiatric History: Reports: Anxiety, Depression - Infectious Disease History Infectious Disease History: Reports: None - Past Surgical History GI Surgical History: Reports: Cholecystectomy Female Surgical History: Reports: Section Social & Family History - Tobacco Use Tobacco Use Status *Q: Current Every Day Tobacco User - Caffeine Use Caffeine Use: Reports: Soda - Living Situation & Occupation Occupation: Employed (Works at [employer].) ED ROS GENERAL - Review of Systems Review Of Systems: See Below Constitutional: Reports: Fever, Chills, Malaise HEENT: Reports: Other (No nasal congestion. No sore throat.) Respiratory: Denies: Shortness of Breath, Cough Cardiovascular: Denies: Chest Pain, Palpitations, Syncope GI/Abdominal: Reports: Abdominal Pain, Nausea, Vomiting. Denies: Diarrhea : Denies: Dysuria, Flank Pain, Hematuria Musculoskeletal: Reports: Back Pain. Denies: Neck Pain Skin: Denies: Diaphoresis, Rash Neurological: Denies: Dizziness, Headache Psychiatric: Reports: Anxiety Hematologic/Lymphatic: Denies: Easy Bleeding, Easy Bruising ED EXAM,LOWER BACK PAIN/INJURY - Physical Exam Exam: See Below Exam Limited By: No Limitations General Appearance: Alert, Moderate Distress (Appears in acute pain.), Obese Eye Exam: Bilateral Eye: EOMI, Normal Inspection (Sclera are anicteric) Ears: Normal External Exam, Hearing Grossly Normal Nose: Normal Inspection, Normal Mucosa, No Blood Throat/Mouth: Normal Inspection, Normal Oropharynx, Normal Voice, No Airway Compromise Head: Atraumatic, Normocephalic Neck: Normal Inspection, Supple, Non-Tender, Full Range of Motion Respiratory/Chest: No Respiratory Distress, Lungs Clear, Normal Breath Sounds, No Accessory Muscle Use, Chest Non-Tender Cardiovascular: Normal Peripheral Pulses, Regular Rate, Rhythm, No Murmur GI/Abdominal: Normal Bowel Sounds, Soft, No Mass, Tender (In epigastrium.). No: Guarding, Rebound Back Exam: Normal Inspection, Full Range of Motion, CVA Tenderness (R), CVA Tenderness (L) Extremities: Normal Inspection, Normal Range of Motion, Non-Tender, No Pedal Edema, Normal Capillary Refill Neurological: Alert, Normal Mood/Affect, Normal Dorsiflexion, CN II-XII Intact, Normal Plantar Flexion, No Motor/Sensory Deficits, Oriented x 3 Psychiatric: Anxious Skin Exam: Warm, Dry, Intact, Normal Color, No Rash Lymphatic: No Adenopathy Course - Vital Signs Last Recorded V/S: Last Vital Signs Temp 37.7 C 06/02/21 18:06 Pulse 96 06/02/21 19:45 Resp 18 06/02/21 19:45 BP 134/82 06/02/21 19:45 Pulse Ox 96 06/02/21 19:45 - Orders/Labs/Meds Orders: Active Orders 24 hr Category Date Time Status Fox Catheter Insertion [Insert Urinary Catheter] [OM. Care 06/02/21 20:35 Ordered PC] ONETIME Insert Urinary Catheter [OM.PC] ONETIME Care 06/02/21 20:30 Ordered Urinary Catheter Assessment [RC] ONETIME Care 06/02/21 20:35 Active Abdomen Pelvis w Cont [CT] Stat Exams 06/02/21 20:24 Taken CULTURE URINE [RM] Stat Lab 06/02/21 20:35 Received Sodium Chloride 0.9% [Normal Saline] 1,000 ml Med 06/02/21 18:45 Active IV ASDIRECTED Sodium Chloride 0.9% [Saline Flush] Med 06/02/21 18:31 Active 10 ml FLUSH ASDIRECTED PRN Peripheral IV Insertion Adult [OM.PC] Routine Oth 06/02/21 18:31 Ordered Medication Orders Sodium Chloride (Normal Saline) 1,000 mls @ 150 mls/hr IV ASDIRECTED STEPHANIE Last Admin: 06/02/21 21:47 Dose: 150 mls/hr Documented by: YUVAL Sodium Chloride (Sodium Chloride 0.9% 10 Ml Syringe) 10 ml FLUSH ASDIRECTED PRN PRN Reason: Keep Vein Open Last Admin: 06/02/21 18:55 Dose: 10 ml Documented by: EVENS Labs: Laboratory Tests 06/02/21 06/02/21 06/02/21 Range/Units 19:12 19:12 19:12 WBC 4.6 (3.0-10.3) x10-3/uL RBC 4.88 (3.60-5.20) x10(6)uL Hgb 13.4 (11.4-15.5) g/dL Hct 40.6 (34.2-48.2) % MCV 83.1 (76.7-100.5) fL MCH 27.5 (23.9-33.9) pg MCHC 33.0 (31.9-34.8) g/dL RDW 14.0 (12.3-16.5) % Plt Count 215 (151-488) x10(3)uL MPV 7.6 (7.1-12.4) fL Neut % (Auto) 80.2 H (30.8-76.2) % Lymph % (Auto) 7.0 L (18.4-52.1) % [place] % (Auto) 11.1 (4.4-15.7) % Eos % (Auto) 0.9 (0.6-8.1) % Baso % (Auto) 0.8 (0.2-1.5) % Neut # (Auto) 3.7 (1.5-6.3) x10-3/uL Lymph # (Auto) 0.3 L (1.0-4.4) x10-3/uL [place] # (Auto) 0.5 (0.3-1.0) x10-3/uL Eos # (Auto) 0.0 (0.0-0.8) x10-3/uL Baso # (Auto) 0.0 (0.0-0.1) x10-3/uL Sodium 143 (135-145) mmol/L Potassium 3.6 (3.5-5.3) mmol/L Chloride 108 (100-110) mmol/L Carbon Dioxide 21 (21-32) mmol/L BUN 8 (7-18) mg/dL Creatinine 0.9 (0.55-1.02) mg/dL Est Cr Clr Drug Dosing 86.34 mL/min Estimated GFR (MDRD) > 60 (>60) BUN/Creatinine Ratio 8.9 L (9-20) Glucose 93 (80-116) mg/dL Calcium 8.8 (8.6-10.2) mg/dL Magnesium 1.5 L (1.8-2.5) mg/dL Total Bilirubin 0.3 (0.1-1.3) mg/dL AST 12 D (5-25) IU/L ALT 24 D (12-36) U/L Alkaline Phosphatase 59 (56-112) IU/L C-Reactive Protein 0.6 (0.5-0.9) mg/dL Total Protein 7.4 (6.0-8.0) g/dL Albumin 3.7 (3.5-5.2) g/dL Globulin 3.7 g/dL Albumin/Globulin Ratio 1.0 Lipase 97 (73-393) U/L Urine Color (YELLOW) Urine Appearance (CLEAR) Urine pH (5.0-6.5) Ur Specific Cornish (1.010-1.025) Urine Protein (NEGATIVE) mg/dL Urine Glucose (UA) (NORMAL) mg/dL Urine Ketones (NEGATIVE) mg/dL Urine Occult Blood (NEGATIVE) Urine Nitrite (NEGATIVE) Urine Bilirubin (NEGATIVE) Urine Urobilinogen (NEGATIVE) mg/dL Ur Leukocyte Esterase (NEGATIVE) Urine RBC (0-5) Urine WBC (0-5) Ur Squamous Epith Cells (NS,R,O) Urine Bacteria (NS) Coarse Granular Casts Urine Mucus (NS) Urine HCG, Qual (NEGATIVE) 06/02/21 06/02/21 Range/Units 19:40 19:40 WBC (3.0-10.3) x10-3/uL RBC (3.60-5.20) x10(6)uL Hgb (11.4-15.5) g/dL Hct (34.2-48.2) % MCV (76.7-100.5) fL MCH (23.9-33.9) pg MCHC (31.9-34.8) g/dL RDW (12.3-16.5) % Plt Count (151-488) x10(3)uL MPV (7.1-12.4) fL Neut % (Auto) (30.8-76.2) % Lymph % (Auto) (18.4-52.1) % [place] % (Auto) (4.4-15.7) % Eos % (Auto) (0.6-8.1) % Baso % (Auto) (0.2-1.5) % Neut # (Auto) (1.5-6.3) x10-3/uL Lymph # (Auto) (1.0-4.4) x10-3/uL [place] # (Auto) (0.3-1.0) x10-3/uL Eos # (Auto) (0.0-0.8) x10-3/uL Baso # (Auto) (0.0-0.1) x10-3/uL Sodium (135-145) mmol/L Potassium (3.5-5.3) mmol/L Chloride (100-110) mmol/L Carbon Dioxide (21-32) mmol/L BUN (7-18) mg/dL Creatinine (0.55-1.02) mg/dL Est Cr Clr Drug Dosing mL/min Estimated GFR (MDRD) (>60) BUN/Creatinine Ratio (9-20) Glucose (80-116) mg/dL Calcium (8.6-10.2) mg/dL Magnesium (1.8-2.5) mg/dL Total Bilirubin (0.1-1.3) mg/dL AST (5-25) IU/L ALT (12-36) U/L Alkaline Phosphatase (56-112) IU/L C-Reactive Protein (0.5-0.9) mg/dL Total Protein (6.0-8.0) g/dL Albumin (3.5-5.2) g/dL Globulin g/dL Albumin/Globulin Ratio Lipase (73-393) U/L Urine Color Yellow (YELLOW) Urine Appearance Slightly cloudy (CLEAR) Urine pH 5.0 (5.0-6.5) Ur Specific Cornish 1.030 H (1.010-1.025) Urine Protein Negative (NEGATIVE) mg/dL Urine Glucose (UA) Normal (NORMAL) mg/dL Urine Ketones 15 H (NEGATIVE) mg/dL Urine Occult Blood Large H (NEGATIVE) Urine Nitrite Negative (NEGATIVE) Urine Bilirubin Negative (NEGATIVE) Urine Urobilinogen Normal (NEGATIVE) mg/dL Ur Leukocyte Esterase Large H (NEGATIVE) Urine RBC 20-30 H (0-5) Urine WBC 10-20 H (0-5) Ur Squamous Epith Cells Few H (NS,R,O) Urine Bacteria Few H (NS) Coarse Granular Casts Partner Urine Mucus Few H (NS) Urine HCG, Qual Negative (NEGATIVE) Meds: Medications Generic Name Dose Route Start Last Admin Trade Name Carlos PRN Reason Stop Dose Admin Sodium Chloride 1,000 mls @ 150 mls/hr 06/02/21 18:45 06/02/21 21:47 Normal Saline IV 150 mls/hr ASDIRECTED STEPHANIE Administration Sodium Chloride 10 ml 06/02/21 18:31 06/02/21 18:55 Sodium Chloride 0.9% 10 Ml Syringe FLUSH 10 ml ASDIRECTED PRN Administration Keep Vein Open Discontinued Medications Generic Name Dose Route Start Last Admin Trade Name Carlos PRN Reason Stop Dose Admin Ceftriaxone Sodium 2 gm 06/02/21 23:04 06/02/21 23:18 Ceftriaxone 2 Gm Vial IVPUSH 06/02/21 23:05 2 gm ONETIME ONE Administration Hydromorphone HCl 1 mg 06/02/21 18:33 06/02/21 19:00 Hydromorphone 2 Mg/Ml Sdv IVPUSH 06/02/21 18:34 1 mg ONETIME ONE Administration Sodium Chloride 1,000 mls @ 999 mls/hr 06/02/21 18:33 06/02/21 18:55 Normal Saline IV 06/02/21 19:33 999 mls/hr .BOLUS ONE Administration Magnesium Sulfate 2 gm/ Premix 50 mls @ 50 mls/hr 06/02/21 20:04 06/02/21 21:47 IV 06/02/21 21:03 50 mls/hr ONETIME ONE Administration Promethazine HCl 25 mg/ Sodium 51 mls @ 200 mls/hr 06/02/21 22:44 06/02/21 22:59 Chloride IV 06/02/21 22:59 200 mls/hr ONETIME ONE Administration Iopamidol 118 ml 06/02/21 20:37 06/02/21 21:46 Iopamidol 755 Mg/Ml 150 Ml Bottle IV 06/02/21 20:38 118 ml ONETIME ONE Administration Ketorolac Tromethamine 30 mg 06/02/21 22:44 Ketorolac 30 Mg/Ml Sdv IVPUSH 06/02/21 22:45 ONETIME ONE Ondansetron HCl 4 mg 06/02/21 18:33 06/02/21 18:55 Ondansetron 4 Mg/2 Ml Sdv IVPUSH 06/02/21 18:34 4 mg ONETIME ONE Administration - Radiology Interpretation Free Text/Narrative:: CT scan of the abdomen and pelvis showed no acute process demonstrated in the abdomen and pelvis per the [facility] radiologist. - Re-Assessments/Exams Free Text/Narrative Re-Assessment/Exam: 06/02/21 20:17: The patient reports that her pain is much improved. Her pain is down to 4/10. All of her blood tests are reassuringly normal. The urine test was a contaminated specimen. Have the nursing staff do a Stress specimen for repeat urine and for urine culture. Reexamined the patient's abdomen revealed that it was soft and she had only mild tenderness in her upper abdomen. I will send the patient over for CT of her abdomen and pelvis with IV contrast. 06/02/21 22:40: Patient is back from CT scan. I am awaiting the results of her CT scan. Her repeat urine showed evidence of infection. She is reporting that the pain in her mid back is coming back and she has more nausea. I will have the nursing staff give the patient Toradol 30 mg IV and Phenergan 25 mg IV. 06/02/21 23:00: CT scan of the abdomen and pelvis showed no acute process in the abdomen or pelvis read receiving Phenergan IV and has received Toradol. She appears hemodynamically stable and nontoxic at this point. Rocephin 2 g IV was ordered to treat for probable pyelonephritis symptoms. Following this she will probably be stable for discharge. I discussed this with the patient and with her family and they would be in agreement with this plan. 06/02/21 23:43: Patient has received the Rocephin IV as well as the Toradol and the Phenergan. She feels much improved. I will discharge the patient on Bactrim DS as an antibiotic and she will also be given a take-home pack of Zofran as well as a prescription of this and tramadol for her pain. She will also be given a note for no work until 06/05/2021 Departure - Departure Time of Disposition: 23:50 Disposition: Home, Self-Care 01 Condition: Good (Improved) Clinical Impression: Pyelonephritis, Dehydration Abdominal pain Qualifiers: Abdominal location: upper abdomen, unspecified Qualified Code(s): R10.10 - Upper abdominal pain, unspecified Back pain Qualifiers: Back pain location: low back pain Chronicity: acute Back pain laterality: bilateral Sciatica presence: without sciatica Qualified Code(s): M54.50 - Low back pain, unspecified - Discharge Information Prescriptions: cephALEXin [Keflex] 1,000 mg PO TID #60 cap traMADol [Ultram] 50 mg PO Q6H PRN #10 tab PRN Reason: Moderate to severe Ondansetron [Zofran ODT] 4 mg PO Q6H PRN #8 tab.dis PRN Reason: Nausea/Vomiting Instructions: Pyelonephritis, Adult, [id number], Abdominal Pain, Adult, [id number], Dehydration, Adult, [id number], Acute Back Pain, Adult Referrals: Sandip Silva MD [Primary Care Provider] - Forms: ED Return to Work/School Form Additional Instructions: Your blood tests were all reassuringly normal. Your urine test did show evidence of infection. The CT scan of your abdomen and pelvis did not show anything that would be causing your pain. I feel that most probably you have a kidney infectio n and that is causing your symptoms. You were given IV fluids and IV antibiotics (Rocephin) in the emergency department. I have sent prescriptions to your pharmacy for additional antibiotics (Keflex) and also for pain medication (tramadol) and antinausea medication (Zofran). You will need to pick these medications up tomorrow and begin taking them. The pain medication and nausea medications are to be taken as needed. You need to increase your fluid intake. You can also take Tylenol and ibuprofen as needed for or pain. No work until 06/05/2021. Back to the emergency department for unrelenting vomiting, severe weakness, uncontrolled symptoms or any other concerning signs or symptoms. Sepsis Event Note (ED) - Focused Exam Vital Signs: Vital Signs Temp Pulse Resp BP BP Pulse Ox 06/02/21 19:45 96 18 134/82 96 06/02/21 18:06 37.7 C 98 32 H 148/85 H 100 - My Orders Last 24 Hours: My Active Orders 06/02/21 18:31 Sodium Chloride 0.9% [Saline Flush] 10 ml FLUSH ASDIRECTED PRN Peripheral IV Insertion Adult [OM.PC] Routine 06/02/21 18:45 Sodium Chloride 0.9% [Normal Saline] 1,000 ml IV ASDIRECTED 06/02/21 20:24 Abdomen Pelvis w Cont [CT] Stat 06/02/21 20:30 Insert Urinary Catheter [OM.PC] ONETIME 06/02/21 20:35 Fox Catheter Insertion [Insert Urinary Catheter] [OM.PC] ONETIME Urinary Catheter Assessment [RC] ONETIME CULTURE URINE [RM] Stat - Assessment/Plan Last 24 Hours: My Active Orders 06/02/21 18:31 Sodium Chloride 0.9% [Saline Flush] 10 ml FLUSH ASDIRECTED PRN Peripheral IV Insertion Adult [OM.PC] Routine 06/02/21 18:45 Sodium Chloride 0.9% [Normal Saline] 1,000 ml IV ASDIRECTED 06/02/21 20:24 Abdomen Pelvis w Cont [CT] Stat 06/02/21 20:30 Insert Urinary Catheter [OM.PC] ONETIME 06/02/21 20:35 Fox Catheter Insertion [Insert Urinary Catheter] [OM.PC] ONETIME Urinary Catheter Assessment [RC] ONETIME CULTURE URINE [RM] Stat
[2021-06-02] MEDS ORDERED: Sodium Chloride 0.9% 10 ML Syringe FLUSH PRN (18:31)
[2021-06-02] MEDS ORDERED: Ondansetron 4 MG/2 ML SDV IVPUSH ONE (18:33)
[2021-06-02] MEDS ORDERED: HYDROmorphone 2 MG/ML SDV IVPUSH ONE (18:33)
[2021-06-02] MEDS ORDERED: Sodium Chloride 0.9% 1,000 ML IV ONE (18:33)
[2021-06-02] MEDS ORDERED: Sodium Chloride 0.9% 1,000 ML IV SCH (18:45)
[2021-06-02] MEDS ORDERED: Magnesium Sulfate/Water 2 GM in Premix Bag 1 BAG IV ONE (20:04)
[2021-06-02] MEDS ORDERED: Iopamidol 755 MG/ML 150 ML Bottle IV ONE (20:37)
[2021-06-02] MEDS ORDERED: Promethazine 25 MG in Sodium Chloride 0.9% 50 ML IV ONE (22:44)
[2021-06-02] MEDS ORDERED: Ketorolac 30 MG/ML SDV IVPUSH ONE (22:44)
[2021-06-02] MEDS ORDERED: cefTRIAXone 2 GM Vial IVPUSH ONE (23:04)
[2021-06-03 05:28] VITALS: BP 122/68; PULSE 80
== END 2021-06-03 00:15 | disposition home or self-care (01) ==
LOC: FB.ED 18:06
DX: N12 Tubulo-interstitial nephritis, not specified as acute or chronic (principal); E86.0 Dehydration; M54.50 Low back pain, unspecified; Z72.0 Tobacco use; Z88.8 Allergy status to other drugs, medicaments and biological substances
CPT/HCPCS: 36415; 74177; 80053; 81001; 81025; 83690; 83735; 85025; 86140; 87086; 96365; 96367; 96375; 99284; A9270; J0696; J1170; J1885; J2405; J2550; J3475; J7030; Q9967

== ENCOUNTER 2021-08-20 08:03 | Emergency (ER) | payer MEDICAID ==
[2021-08-20] MEDS ORDERED: Ondansetron 4 MG/2 ML SDV IVPUSH STA (08:20)
[2021-08-20] MEDS ORDERED: Sodium Chloride 0.9% 10 ML Syringe FLUSH PRN (08:20)
[2021-08-20] MEDS ORDERED: Sodium Chloride 0.9% 1,000 ML IV SCH (08:30)
--- NOTE | 2021-08-20 09:32 | EDM.PDOC ---
ED HPI GENERAL MEDICAL PROBLEM - General Chief Complaint: Gastrointestinal Problem Stated Complaint: vomiting Time Seen by Provider: 08/20/21 08:10 Source of Information: Reports: Patient, Family History Limitations: Reports: No Limitations - History of Present Illness INITIAL COMMENTS - FREE TEXT/NARRATIVE: Patient presented to the ED because of persistent nausea and vomiting and can't keep anything down for 3 days. There is no abdominal pain, diarrhea or UTI s/s. She was seen in the clinic yesterday and was told that she has a viral illness. 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: Musculoskeletal History: Reports: Fibromyalgia Other Musculoskeletal History: shoulder dislocations Neurological History: Reports: Migraines Psychiatric History: Reports: Anxiety, Depression Endocrine/Metabolic History: Reports: None Hematologic History: Reports: None Oncologic (Cancer) History: Reports: None Dermatologic History: Reports: None - Infectious Disease History Infectious Disease History: Reports: None - Past Surgical History Head Surgeries/Procedures: Reports: None GI Surgical History: Reports: Cholecystectomy Female Surgical History: Reports: Section Social & Family History - Family History Family Medical History: No Pertinent Family History - Tobacco Use Tobacco Use Status *Q: Current Every Day Tobacco User Years of Tobacco use: 17 Packs/Tins Daily: 0.2 - Caffeine Use Caffeine Use: Reports: Coffee - Recreational Drug Use Recreational Drug Use: No - Living Situation & Occupation Occupation: Employed (Works at [employer] ED ROS GENERAL - Review of Systems Review Of Systems: See Below Constitutional: Reports: No Symptoms HEENT: Reports: No Symptoms Respiratory: Reports: No Symptoms Cardiovascular: Reports: No Symptoms Endocrine: Reports: No Symptoms GI/Abdominal: Reports: Nausea, Vomiting : Reports: No Symptoms Musculoskeletal: Reports: No Symptoms Skin: Reports: No Symptoms Neurological: Reports: No Symptoms Psychiatric: Reports: No Symptoms ED EXAM, GI/ABD - Physical Exam Exam: See Below Exam Limited By: No Limitations General Appearance: Alert, No Apparent Distress Ears: Normal External Exam, Normal Canal Nose: Normal Inspection, Normal Mucosa, No Blood Throat/Mouth: Normal Inspection, Normal Lips, Normal Teeth, Normal Oropharynx, Normal Voice Head: Atraumatic, Normocephalic Neck: Normal Inspection, Supple, Non-Tender, Full Range of Motion Respiratory/Chest: No Respiratory Distress, Lungs Clear, Normal Breath Sounds, No Accessory Muscle Use, Chest Non-Tender Cardiovascular: Normal Peripheral Pulses, Regular Rate, Rhythm, No Edema, No Gallop, No Murmur, No Rub GI/Abdominal Exam: Normal Bowel Sounds, Soft, No Organomegaly, Other (epigastric tenderness) Back Exam: Normal Inspection, Full Range of Motion Extremities: Normal Inspection, Normal Range of Motion, Non-Tender, No Pedal Edema, Normal Capillary Refill Neurological: Alert, Oriented, CN II-XII Intact, Normal Cognition, Normal Reflexes, No Motor/Sensory Deficits Course - Vital Signs Text/Narrative:: Lab result was reviewed and discussed with patient NS 1 L bolus Zofran 4 mg IV x1 Last Recorded V/S: Last Vital Signs Temp 36.7 C 08/20/21 10:00 Pulse 69 08/20/21 10:00 Resp 16 08/20/21 10:00 BP 145/90 H 08/20/21 10:00 Pulse Ox 99 08/20/21 10:00 - Orders/Labs/Meds Labs: Laboratory Tests 08/20/21 08/20/21 Range/Units 08:30 08:30 WBC 6.3 (3.0-10.3) x10-3/uL RBC 5.32 H (3.60-5.20) x10(6)uL Hgb 14.8 (11.4-15.5) g/dL Hct 44.7 (34.2-48.2) % MCV 84.0 (76.7-100.5) fL MCH 27.8 (23.9-33.9) pg MCHC 33.1 (31.9-34.8) g/dL RDW 14.3 (12.3-16.5) % Plt Count 218 (151-488) x10(3)uL MPV 8.1 (7.1-12.4) fL Neut % (Auto) 62.2 (30.8-76.2) % Lymph % (Auto) 27.7 (18.4-52.1) % Simpson % (Auto) 5.6 (4.4-15.7) % Eos % (Auto) 3.6 (0.6-8.1) % Baso % (Auto) 0.9 (0.2-1.5) % Neut # (Auto) 3.9 (1.5-6.3) x10-3/uL Lymph # (Auto) 1.8 (1.0-4.4) x10-3/uL Simpson # (Auto) 0.4 (0.3-1.0) x10-3/uL Eos # (Auto) 0.2 (0.0-0.8) x10-3/uL Baso # (Auto) 0.1 (0.0-0.1) x10-3/uL Sodium 142 (135-145) mmol/L Potassium 3.7 (3.5-5.3) mmol/L Chloride 108 (100-110) mmol/L Carbon Dioxide 25 (21-32) mmol/L BUN 15 (7-18) mg/dL Creatinine 1.0 (0.55-1.02) mg/dL Est Cr Clr Drug Dosing 77.71 mL/min Estimated GFR (MDRD) > 60 (>60) BUN/Creatinine Ratio 15.0 (9-20) Glucose 96 (80-116) mg/dL Calcium 8.7 (8.6-10.2) mg/dL Meds: Medications Discontinued Medications Generic Name Dose Route Start Last Admin Trade Name Freq PRN Reason Stop Dose Admin Sodium Chloride 1,000 mls @ 999 mls/hr 08/20/21 08:30 08/20/21 08:28 Normal Saline IV 999 mls/hr ASDIRECTED STEPHANIE Administration Ondansetron HCl 4 mg 08/20/21 08:20 08/20/21 08:28 Ondansetron 4 Mg/2 Ml Sdv IVPUSH 08/20/21 08:21 4 mg NOW STA Administration Sodium Chloride 10 ml 08/20/21 08:20 Sodium Chloride 0.9% 10 Ml Syringe FLUSH ASDIRECTED PRN Keep Vein Open Departure - Departure Time of Disposition: 10:00 Disposition: Home, Self-Care 01 Condition: Good Clinical Impression: Viral gastroenteritis, Dehydration - Discharge Information Prescriptions: Ondansetron [Zofran ODT] 4 mg PO Q4H PRN #5 tab.dis PRN Reason: Nausea Instructions: Viral Gastroenteritis, Adult, [id number] Referrals: Sandip Silva MD [Primary Care Provider] - Forms: ED Department Discharge, ED Return to Work/School Form Additional Instructions: Please read discharge instructions on viral gastroenteritis Zofran ODT 4 mg every 4 hours as needed for nausea Drink 2 liters of water daily Follow up as needed Sepsis Event Note (ED) - Evaluation Sepsis Screening Result: No Definite Risk
[2021-08-20 10:22] VITALS: BP 145/90; PULSE 69
== END 2021-08-20 10:00 | disposition home or self-care (01) ==
LOC: FB.ED 08:03
DX: A08.4 Viral intestinal infection, unspecified (principal); E86.0 Dehydration; Z88.8 Allergy status to other drugs, medicaments and biological substances; Z72.0 Tobacco use
CPT/HCPCS: 36415; 80048; 85025; 96374; 99284; J2405; J7030

== ENCOUNTER 2021-09-22 11:11 | Emergency (ER) | payer MEDICAID ==
[2021-09-22] MEDS ORDERED: Ibuprofen 600 MG Tab PO ONE (11:15)
[2021-09-22] MEDS ORDERED: Acetaminophen 500 MG Tab PO ONE (11:15)
[2021-09-22 14:21] VITALS: BP 131/79; PULSE 80
== END 2021-09-22 11:45 | disposition home or self-care (01) ==
LOC: FB.ED 11:11
DX: S60.032A Contusion of left middle finger without damage to nail, initial encounter (principal); Z88.8 Allergy status to other drugs, medicaments and biological substances; W23.0XXA Caught, crushed, jammed, or pinched between moving objects, initial encounter
CPT/HCPCS: 73140-F2; 99283-25; A9270-GY

== ENCOUNTER 2021-09-30 20:19 | Emergency (ER) | payer MEDICAID ==
[2021-09-30] MEDS ORDERED: Ondansetron 4 MG Tab.DIS PO ONE (20:35)
[2021-09-30] MEDS ORDERED: Ketorolac 30 MG/ML SDV IM ONE (20:35)
[2021-09-30] MEDS ORDERED: Sodium Chloride 0.9% 10 ML Syringe FLUSH PRN (21:21)
[2021-09-30] MEDS ORDERED: Prochlorperazine 10 MG in Sodium Chloride 0.9% 50 ML IV STA (21:21)
[2021-09-30] MEDS ORDERED: Morphine 4 MG/ML VIAL IVPUSH STA (21:21)
[2021-09-30] MEDS ORDERED: Sodium Chloride 0.9% 1,000 ML IV SCH (21:30)
[2021-09-30] MEDS ORDERED: Ciprofloxacin 500 MG Tab PO STA (22:24)
[2021-09-30 23:03] VITALS: BP 108/56; PULSE 59
== END 2021-09-30 23:00 | disposition home or self-care (01) ==
LOC: FB.ED 20:19
DX: N39.0 Urinary tract infection, site not specified (principal); N12 Tubulo-interstitial nephritis, not specified as acute or chronic; Z88.8 Allergy status to other drugs, medicaments and biological substances; Z72.0 Tobacco use
CPT/HCPCS: 36415; 80048; 81001; 85025; 87086; 96365; 96372; 96375; 99284; A9270; J0780; J1885; J2270; J7030; Q0162

== ENCOUNTER 2021-10-13 16:30 | Emergency (ER) | payer MEDICAID ==
[2021-10-13] MEDS ORDERED: Ondansetron 4 MG Tab.DIS PO ONE ×2 (16:43→16:45)
[2021-10-13] MEDS ORDERED: Acetaminophen 500 MG Tab PO STA (16:45)
[2021-10-13] MEDS ORDERED: Ketorolac 30 MG/ML SDV IVPUSH STA (17:04)
[2021-10-13] MEDS ORDERED: Prochlorperazine 10 MG/2 ML SDV IVPUSH STA (17:04)
[2021-10-13] MEDS ORDERED: Sodium Chloride 0.9% 1,000 ML IV SCH (17:15)
[2021-10-13 17:25] VITALS: BP 138/76; PULSE 92
[2021-10-13] MEDS ORDERED: Potassium Chloride 20 MEQ Tab.ER PO STA (17:34)
[2021-10-13 18:01] LABS: CORONAVIRUS COVID-19 NAA NEGATIVE (NEGATIVE)
== END 2021-10-13 18:26 | disposition home or self-care (01) ==
LOC: FB.ED 16:30
DX: G43.909 Migraine, unspecified, not intractable, without status migrainosus (principal); B34.9 Viral infection, unspecified; Z88.8 Allergy status to other drugs, medicaments and biological substances; Z72.0 Tobacco use; Z20.822 Contact with and (suspected) exposure to COVID-19
CPT/HCPCS: 0240U; 36415; 80048; 85025; 96374; 96375; 99284-25; A9270-GY; J0780; J1885; J7030; Q0162

== ENCOUNTER 2021-11-04 13:55 | Emergency (ER) | payer MEDICAID ==
[2021-11-04] MEDS ORDERED: Albuterol/Ipratropium 3.0-0.5 MG/3 ML Neb Soln NEB STA ×2 (14:28)
[2021-11-04] MEDS ORDERED: methylPREDNISolone Sodium Succinate 125 MG/2 ML SDV ONE (14:29)
[2021-11-04] MEDS ORDERED: Albuterol/Ipratropium 3.0-0.5 MG/3 ML Neb Soln ONE (14:30)
[2021-11-04] MEDS ORDERED: methylPREDNISolone Sodium Succinate 125 MG/2 ML SDV IM ONE (14:34)
[2021-11-04 19:16] VITALS: BP 139/86; PULSE 87
== END 2021-11-04 15:15 | disposition home or self-care (01) ==
LOC: FB.ED 13:55
DX: J45.901 Unspecified asthma with (acute) exacerbation (principal); J20.9 Acute bronchitis, unspecified; Z88.8 Allergy status to other drugs, medicaments and biological substances
CPT/HCPCS: 71045; 93005; 96372; 99284; 99285-25; J2930; J7620

== ENCOUNTER 2021-11-30 14:21 | Emergency (ER) | payer MEDICAID ==
[2021-11-30] MEDS ORDERED: Ondansetron 4 MG Tab.DIS PO ONE (14:22)
[2021-11-30 14:46] VITALS: BP 122/77; PULSE 72
[2021-11-30] MEDS ORDERED: Lactated Ringers 1,000 ML IV ONE (14:59)
[2021-11-30] MEDS ORDERED: Ketorolac 30 MG/ML SDV ONE (14:59)
[2021-11-30] MEDS ORDERED: Ondansetron 4 MG/2 ML SDV ONE (14:59)
[2021-11-30] MEDS ORDERED: SUMAtriptan 50 MG Tab ONE (14:59)
[2021-11-30] MEDS ORDERED: Ketorolac 30 MG/ML SDV IVPUSH ONE (15:00)
[2021-11-30] MEDS ORDERED: diphenhydrAMINE 50 MG/ML SDV IVPUSH ONE (15:01)
[2021-11-30] MEDS ORDERED: Ondansetron 4 MG/2 ML SDV IVPUSH ONE (15:01)
[2021-11-30] MEDS ORDERED: SUMAtriptan 50 MG Tab PO ONE (15:03)
== END 2021-11-30 16:12 | disposition home or self-care (01) ==
LOC: FB.ED 14:21
DX: G43.909 Migraine, unspecified, not intractable, without status migrainosus (principal); E66.9 Obesity, unspecified; F17.200 Nicotine dependence, unspecified, uncomplicated; Z88.8 Allergy status to other drugs, medicaments and biological substances; Z68.35 Body mass index [BMI] 35.0-35.9, adult
CPT/HCPCS: 96374; 96375; 99283; 99283-25; A9270-GY; J1200; J1885; J2405; J7120; Q0162

== ENCOUNTER 2022-01-09 09:59 | Emergency (ER) | payer MEDICAID ==
[2022-01-09 10:12] VITALS: BP 124/74; PULSE 73
[2022-01-09] MEDS ORDERED: Sodium Chloride 0.9% 10 ML Syringe FLUSH PRN (10:50)
[2022-01-09] MEDS ORDERED: Ketorolac 30 MG/ML SDV IVPUSH ONE (10:52)
[2022-01-09] MEDS ORDERED: Ondansetron 4 MG/2 ML SDV IVPUSH ONE (10:52)
[2022-01-09] MEDS ORDERED: Sodium Chloride 0.9% 1,000 ML IV SCH (11:00)
== END 2022-01-09 12:59 | disposition home or self-care (01) ==
LOC: FB.ED 09:59
DX: S39.012A Strain of muscle, fascia and tendon of lower back, initial encounter (principal); G43.909 Migraine, unspecified, not intractable, without status migrainosus; F17.210 Nicotine dependence, cigarettes, uncomplicated; Z90.49 Acquired absence of other specified parts of digestive tract; Z79.899 Other long term (current) drug therapy; Z88.8 Allergy status to other drugs, medicaments and biological substances; W01.0XXA Fall on same level from slipping, tripping and stumbling without subsequent striking against object, initial encounter
CPT/HCPCS: 36415; 72100; 73502; 80048; 85025; 96374; 96375; 99283; J1885; J2405; J3490; J7030

== ENCOUNTER 2022-03-29 22:57 | Emergency (ER) | payer MEDICAID ==
[2022-03-29] MEDS: Ketorolac 30 MG/ML SDV IM ONE (23:29)
[2022-03-29] MEDS: Cyclobenzaprine 10 MG Tab PO ONE (23:30)
[2022-03-29 23:42] VITALS: BP 134/76; PULSE 83
== END 2022-03-29 23:55 | disposition home or self-care (01) ==
LOC: FB.ED 22:57
DX: S39.012A Strain of muscle, fascia and tendon of lower back, initial encounter (principal); F12.90 Cannabis use, unspecified, uncomplicated; M79.7 Fibromyalgia; F17.210 Nicotine dependence, cigarettes, uncomplicated; E66.9 Obesity, unspecified; Z88.8 Allergy status to other drugs, medicaments and biological substances; Z68.35 Body mass index [BMI] 35.0-35.9, adult
CPT/HCPCS: 96372; 99283; A9270; J1885

== ENCOUNTER 2022-04-02 09:28 | Emergency (ER) | payer MEDICAID ==
[2022-04-02] MEDS ORDERED: Ketorolac 30 MG/ML SDV IM STA (09:41)
[2022-04-02] MEDS ORDERED: Acetaminophen/HYDROcodone 325-5 MG Tab PO STA (09:41)
[2022-04-02] MEDS ORDERED: Cyclobenzaprine 10 MG Tab PO STA (09:42)
[2022-04-02 21:41] VITALS: BP 109/76; PULSE 74
== END 2022-04-02 10:20 | disposition home or self-care (01) ==
LOC: FB.ED 09:28
DX: S39.012A Strain of muscle, fascia and tendon of lower back, initial encounter (principal); K21.9 Gastro-esophageal reflux disease without esophagitis; Z88.8 Allergy status to other drugs, medicaments and biological substances; Z79.899 Other long term (current) drug therapy; Z90.49 Acquired absence of other specified parts of digestive tract; X50.1XXA Overexertion from prolonged static or awkward postures, initial encounter
CPT/HCPCS: 96372; 99283; A9270; J1885

== ENCOUNTER 2023-02-03 18:31 | Emergency (ER) | payer MEDICAID ==
[2023-02-03 20:32] VITALS: BP 137/98; PULSE 76
[2023-02-03] MEDS ORDERED: Acetaminophen/HYDROcodone 325-5 MG Tab PO ONE (20:40)
[2023-02-03] MEDS ORDERED: Diazepam 2 MG Tab PO ONE (20:40)
[2023-02-03] MEDS ORDERED: Ketorolac 30 MG/ML SDV IM ONE (20:40)
== END 2023-02-03 21:35 | disposition home or self-care (01) ==
LOC: FB.ED 18:31
DX: M54.16 Radiculopathy, lumbar region (principal); G89.29 Other chronic pain; M62.830 Muscle spasm of back; F17.210 Nicotine dependence, cigarettes, uncomplicated; J45.909 Unspecified asthma, uncomplicated; K21.9 Gastro-esophageal reflux disease without esophagitis; Z88.8 Allergy status to other drugs, medicaments and biological substances
CPT/HCPCS: 96372; 99283; A9270-GY; J1885

== ENCOUNTER 2023-08-12 21:19 | Emergency (ER) | payer MEDICAID ==
[2023-08-12] MEDS ORDERED: Penicillin G Benzathine 1,200,000 Units/2 ML Syringe IM ONE (22:25)
[2023-08-12 23:06] VITALS: BP 129/81; PULSE 83
== END 2023-08-12 22:59 | disposition home or self-care (01) ==
LOC: FB.ED 21:19
DX: J03.00 Acute streptococcal tonsillitis, unspecified (principal); F17.210 Nicotine dependence, cigarettes, uncomplicated; E66.9 Obesity, unspecified; J45.909 Unspecified asthma, uncomplicated; Z79.899 Other long term (current) drug therapy; Z88.8 Allergy status to other drugs, medicaments and biological substances
CPT/HCPCS: 87651; 96372; 99283; J0561

== ENCOUNTER 2024-08-01 18:58 | Emergency (ER) | payer MEDICAID ==
[2024-08-01 19:20] VITALS: BP 124/86; PULSE 60
[2024-08-01] MEDS: Ketorolac 30 MG/ML SDV IM ONE (19:28)
[2024-08-01] MEDS: Metoclopramide 10 MG/2 ML SDV IM ONE (19:28)
== END 2024-08-01 20:10 | disposition home or self-care (01) ==
LOC: FB.ED 18:58
DX: G43.909 Migraine, unspecified, not intractable, without status migrainosus (principal); J45.909 Unspecified asthma, uncomplicated; E66.9 Obesity, unspecified; Z90.49 Acquired absence of other specified parts of digestive tract; Z88.8 Allergy status to other drugs, medicaments and biological substances; Z79.51 Long term (current) use of inhaled steroids; Z79.899 Other long term (current) drug therapy; Z68.33 Body mass index [BMI] 33.0-33.9, adult
CPT/HCPCS: 96372; 99283; J1885; J2765